=== PATIENT | male | born 1955 | race Hispanic/Latino ===

== ENCOUNTER → 2019-04-08 | Outpatient (CLI) | payer MEDICARE ==
[2019-04-08 14:39] VITALS: BP 113/67
== END | disposition home or self-care (01) ==
LOC: WHH 10:00
PROVIDERS: ATTEND Surgery
DX: E11.622 Type 2 diabetes mellitus with other skin ulcer (principal); L97.311 Non-pressure chronic ulcer of right ankle limited to breakdown of skin; I70.233 Atherosclerosis of native arteries of right leg with ulceration of ankle; I69.351 Hemiplegia and hemiparesis following cerebral infarction affecting right dominant side; E11.42 Type 2 diabetes mellitus with diabetic polyneuropathy; E11.51 Type 2 diabetes mellitus with diabetic peripheral angiopathy without gangrene; E11.39 Type 2 diabetes mellitus with other diabetic ophthalmic complication; H40.9 Unspecified glaucoma; I11.0 Hypertensive heart disease with heart failure; I50.9 Heart failure, unspecified; I87.2 Venous insufficiency (chronic) (peripheral); I89.0 Lymphedema, not elsewhere classified; E78.5 Hyperlipidemia, unspecified; K21.9 Gastro-esophageal reflux disease without esophagitis; G20 Parkinson's disease; M15.9 Polyosteoarthritis, unspecified; F32.9 Major depressive disorder, single episode, unspecified; Z87.891 Personal history of nicotine dependence
CPT/HCPCS: A4450; A6021; A6213; A6452; G0463

== ENCOUNTER → 2019-04-15 | Outpatient (CLI) | payer MEDICARE ==
[2019-04-15 11:15] VITALS: BP 141/94
== END | disposition home or self-care (01) ==
LOC: WHH 10:00
PROVIDERS: ATTEND Surgery
DX: E11.622 Type 2 diabetes mellitus with other skin ulcer (principal); L97.311 Non-pressure chronic ulcer of right ankle limited to breakdown of skin; I70.233 Atherosclerosis of native arteries of right leg with ulceration of ankle; I69.351 Hemiplegia and hemiparesis following cerebral infarction affecting right dominant side; E11.42 Type 2 diabetes mellitus with diabetic polyneuropathy; E11.51 Type 2 diabetes mellitus with diabetic peripheral angiopathy without gangrene; E11.39 Type 2 diabetes mellitus with other diabetic ophthalmic complication; H40.9 Unspecified glaucoma; I11.0 Hypertensive heart disease with heart failure; I50.9 Heart failure, unspecified; I87.2 Venous insufficiency (chronic) (peripheral); I89.0 Lymphedema, not elsewhere classified; E78.5 Hyperlipidemia, unspecified; K21.9 Gastro-esophageal reflux disease without esophagitis; G20 Parkinson's disease; M15.9 Polyosteoarthritis, unspecified; F32.9 Major depressive disorder, single episode, unspecified; Z87.891 Personal history of nicotine dependence
CPT/HCPCS: A6022; A6213; A6452; G0463

== ENCOUNTER → 2019-04-22 | Outpatient (CLI) | payer MEDICARE ==
[2019-04-22 12:47] VITALS: BP 142/78
== END | disposition home or self-care (01) ==
LOC: WHH 10:00
PROVIDERS: ATTEND Family Medicine
DX: E11.622 Type 2 diabetes mellitus with other skin ulcer (principal); L97.311 Non-pressure chronic ulcer of right ankle limited to breakdown of skin; I70.233 Atherosclerosis of native arteries of right leg with ulceration of ankle; E11.51 Type 2 diabetes mellitus with diabetic peripheral angiopathy without gangrene; E11.42 Type 2 diabetes mellitus with diabetic polyneuropathy; I69.351 Hemiplegia and hemiparesis following cerebral infarction affecting right dominant side; E11.39 Type 2 diabetes mellitus with other diabetic ophthalmic complication; H40.9 Unspecified glaucoma; I11.0 Hypertensive heart disease with heart failure; I50.9 Heart failure, unspecified; I87.2 Venous insufficiency (chronic) (peripheral); I89.0 Lymphedema, not elsewhere classified; E78.5 Hyperlipidemia, unspecified; K21.9 Gastro-esophageal reflux disease without esophagitis; G20 Parkinson's disease; M15.9 Polyosteoarthritis, unspecified; F32.9 Major depressive disorder, single episode, unspecified; Z87.891 Personal history of nicotine dependence
CPT/HCPCS: A6022; A6213; G0463

== ENCOUNTER → 2019-04-28 | Outpatient (CLI) | payer MEDICARE ==
[2019-04-28 13:07] VITALS: BP 128/83
== END | disposition home or self-care (01) ==
LOC: WHH 10:00
PROVIDERS: ATTEND Surgery
DX: E11.622 Type 2 diabetes mellitus with other skin ulcer (principal); L97.311 Non-pressure chronic ulcer of right ankle limited to breakdown of skin; I70.233 Atherosclerosis of native arteries of right leg with ulceration of ankle; E11.51 Type 2 diabetes mellitus with diabetic peripheral angiopathy without gangrene; E11.42 Type 2 diabetes mellitus with diabetic polyneuropathy; I69.351 Hemiplegia and hemiparesis following cerebral infarction affecting right dominant side; E11.39 Type 2 diabetes mellitus with other diabetic ophthalmic complication; H40.9 Unspecified glaucoma; I11.0 Hypertensive heart disease with heart failure; I50.9 Heart failure, unspecified; I87.2 Venous insufficiency (chronic) (peripheral); I89.0 Lymphedema, not elsewhere classified; K21.9 Gastro-esophageal reflux disease without esophagitis; E78.5 Hyperlipidemia, unspecified; G20 Parkinson's disease; M15.9 Polyosteoarthritis, unspecified; F32.9 Major depressive disorder, single episode, unspecified; Z87.891 Personal history of nicotine dependence
CPT/HCPCS: A6022; A6213; G0463

== ENCOUNTER → 2019-05-05 | Outpatient (CLI) | payer MEDICARE ==
[~2019-05-05] MED LIST: LIDOCAINE/PRILOCAINE CREAM 5GM TUBE TP ONE
[2019-05-05 13:40] VITALS: BP 136/72
== END | disposition home or self-care (01) ==
LOC: WHH 10:00
PROVIDERS: ATTEND Family Medicine
DX: E11.622 Type 2 diabetes mellitus with other skin ulcer (principal); L97.311 Non-pressure chronic ulcer of right ankle limited to breakdown of skin; I70.233 Atherosclerosis of native arteries of right leg with ulceration of ankle; E11.51 Type 2 diabetes mellitus with diabetic peripheral angiopathy without gangrene; E11.42 Type 2 diabetes mellitus with diabetic polyneuropathy; I69.351 Hemiplegia and hemiparesis following cerebral infarction affecting right dominant side; E11.39 Type 2 diabetes mellitus with other diabetic ophthalmic complication; H40.9 Unspecified glaucoma; I11.0 Hypertensive heart disease with heart failure; I50.9 Heart failure, unspecified; I87.2 Venous insufficiency (chronic) (peripheral); I89.0 Lymphedema, not elsewhere classified; K21.9 Gastro-esophageal reflux disease without esophagitis; E78.5 Hyperlipidemia, unspecified; G20 Parkinson's disease; M15.9 Polyosteoarthritis, unspecified; F32.9 Major depressive disorder, single episode, unspecified; F03.90 Unspecified dementia, unspecified severity, without behavioral disturbance, psychotic disturbance, mood disturbance, and anxiety; Z87.891 Personal history of nicotine dependence
CPT/HCPCS: 11042; A6022; A6213; J3490

== ENCOUNTER → 2019-05-19 | Outpatient (CLI) | payer MEDICARE ==
[2019-05-19 12:14] VITALS: BP 139/76
== END | disposition home or self-care (01) ==
LOC: WHH 10:30
PROVIDERS: ATTEND Family Medicine
DX: E11.622 Type 2 diabetes mellitus with other skin ulcer (principal); L97.311 Non-pressure chronic ulcer of right ankle limited to breakdown of skin; E11.51 Type 2 diabetes mellitus with diabetic peripheral angiopathy without gangrene; E11.42 Type 2 diabetes mellitus with diabetic polyneuropathy; I69.351 Hemiplegia and hemiparesis following cerebral infarction affecting right dominant side; E11.39 Type 2 diabetes mellitus with other diabetic ophthalmic complication; H40.9 Unspecified glaucoma; I11.0 Hypertensive heart disease with heart failure; I50.9 Heart failure, unspecified; I87.2 Venous insufficiency (chronic) (peripheral); I89.0 Lymphedema, not elsewhere classified; K21.9 Gastro-esophageal reflux disease without esophagitis; E78.5 Hyperlipidemia, unspecified; G20 Parkinson's disease; M15.9 Polyosteoarthritis, unspecified; F32.9 Major depressive disorder, single episode, unspecified; F03.90 Unspecified dementia, unspecified severity, without behavioral disturbance, psychotic disturbance, mood disturbance, and anxiety; Z87.891 Personal history of nicotine dependence; Z99.3 Dependence on wheelchair
CPT/HCPCS: G0463

== ENCOUNTER → 2019-05-26 | Outpatient (CLI) | payer MEDICARE ==
[2019-05-26 12:14] VITALS: BP 124/81
== END | disposition home or self-care (01) ==
LOC: WHH 10:10
PROVIDERS: ATTEND Surgery
DX: E11.622 Type 2 diabetes mellitus with other skin ulcer (principal); L97.311 Non-pressure chronic ulcer of right ankle limited to breakdown of skin; I70.233 Atherosclerosis of native arteries of right leg with ulceration of ankle; E11.51 Type 2 diabetes mellitus with diabetic peripheral angiopathy without gangrene; E11.42 Type 2 diabetes mellitus with diabetic polyneuropathy; I69.351 Hemiplegia and hemiparesis following cerebral infarction affecting right dominant side; E11.39 Type 2 diabetes mellitus with other diabetic ophthalmic complication; H40.9 Unspecified glaucoma; I11.0 Hypertensive heart disease with heart failure; I50.9 Heart failure, unspecified; I87.2 Venous insufficiency (chronic) (peripheral); I89.0 Lymphedema, not elsewhere classified; K21.9 Gastro-esophageal reflux disease without esophagitis; E78.5 Hyperlipidemia, unspecified; G20 Parkinson's disease; M15.9 Polyosteoarthritis, unspecified; F32.9 Major depressive disorder, single episode, unspecified; F03.90 Unspecified dementia, unspecified severity, without behavioral disturbance, psychotic disturbance, mood disturbance, and anxiety; Z87.891 Personal history of nicotine dependence; Z99.3 Dependence on wheelchair
CPT/HCPCS: A6209; A6213; G0463

== ENCOUNTER → 2019-06-02 | Outpatient (CLI) | payer MEDICARE ==
[2019-06-02 13:37] VITALS: BP 132/72
== END | disposition home or self-care (01) ==
LOC: WHH 10:15
PROVIDERS: ATTEND Surgery
DX: E11.622 Type 2 diabetes mellitus with other skin ulcer (principal); L97.311 Non-pressure chronic ulcer of right ankle limited to breakdown of skin; I70.233 Atherosclerosis of native arteries of right leg with ulceration of ankle; E11.51 Type 2 diabetes mellitus with diabetic peripheral angiopathy without gangrene; E11.42 Type 2 diabetes mellitus with diabetic polyneuropathy; I69.351 Hemiplegia and hemiparesis following cerebral infarction affecting right dominant side; E11.39 Type 2 diabetes mellitus with other diabetic ophthalmic complication; H40.9 Unspecified glaucoma; I11.0 Hypertensive heart disease with heart failure; I50.9 Heart failure, unspecified; I87.2 Venous insufficiency (chronic) (peripheral); I89.0 Lymphedema, not elsewhere classified; K21.9 Gastro-esophageal reflux disease without esophagitis; E78.5 Hyperlipidemia, unspecified; G20 Parkinson's disease; M15.9 Polyosteoarthritis, unspecified; F32.9 Major depressive disorder, single episode, unspecified; F03.90 Unspecified dementia, unspecified severity, without behavioral disturbance, psychotic disturbance, mood disturbance, and anxiety; Z87.891 Personal history of nicotine dependence; Z99.3 Dependence on wheelchair
CPT/HCPCS: A6209; A6213; A6452; G0463

== ENCOUNTER → 2019-06-09 | Outpatient (CLI) | payer MEDICARE ==
[2019-06-09 15:09] VITALS: BP 124/72
== END | disposition home or self-care (01) ==
LOC: WHH 10:00
PROVIDERS: ATTEND Family Medicine
DX: E11.622 Type 2 diabetes mellitus with other skin ulcer (principal); L97.311 Non-pressure chronic ulcer of right ankle limited to breakdown of skin; I70.233 Atherosclerosis of native arteries of right leg with ulceration of ankle; E11.621 Type 2 diabetes mellitus with foot ulcer; L97.501 Non-pressure chronic ulcer of other part of unspecified foot limited to breakdown of skin; E11.51 Type 2 diabetes mellitus with diabetic peripheral angiopathy without gangrene; E11.42 Type 2 diabetes mellitus with diabetic polyneuropathy; I69.351 Hemiplegia and hemiparesis following cerebral infarction affecting right dominant side; E11.39 Type 2 diabetes mellitus with other diabetic ophthalmic complication; H40.9 Unspecified glaucoma; I11.0 Hypertensive heart disease with heart failure; I50.9 Heart failure, unspecified; I87.2 Venous insufficiency (chronic) (peripheral); I89.0 Lymphedema, not elsewhere classified; K21.9 Gastro-esophageal reflux disease without esophagitis; E78.5 Hyperlipidemia, unspecified; G20 Parkinson's disease; M15.9 Polyosteoarthritis, unspecified; F32.9 Major depressive disorder, single episode, unspecified; F03.90 Unspecified dementia, unspecified severity, without behavioral disturbance, psychotic disturbance, mood disturbance, and anxiety; Z87.891 Personal history of nicotine dependence; Z99.3 Dependence on wheelchair
CPT/HCPCS: A6022; A6209; G0463

== ENCOUNTER → 2019-06-16 | Outpatient (CLI) | payer MEDICARE ==
[2019-06-16 12:40] VITALS: BP 123/74
== END | disposition home or self-care (01) ==
LOC: WHH 10:00
PROVIDERS: ATTEND Family Medicine
DX: E11.622 Type 2 diabetes mellitus with other skin ulcer (principal); L97.312 Non-pressure chronic ulcer of right ankle with fat layer exposed; I70.233 Atherosclerosis of native arteries of right leg with ulceration of ankle; E11.51 Type 2 diabetes mellitus with diabetic peripheral angiopathy without gangrene; E11.42 Type 2 diabetes mellitus with diabetic polyneuropathy; I69.351 Hemiplegia and hemiparesis following cerebral infarction affecting right dominant side; E11.39 Type 2 diabetes mellitus with other diabetic ophthalmic complication; H40.9 Unspecified glaucoma; I11.0 Hypertensive heart disease with heart failure; I50.9 Heart failure, unspecified; I87.2 Venous insufficiency (chronic) (peripheral); I89.0 Lymphedema, not elsewhere classified; K21.9 Gastro-esophageal reflux disease without esophagitis; E78.5 Hyperlipidemia, unspecified; G20 Parkinson's disease; M15.9 Polyosteoarthritis, unspecified; F32.9 Major depressive disorder, single episode, unspecified; F03.90 Unspecified dementia, unspecified severity, without behavioral disturbance, psychotic disturbance, mood disturbance, and anxiety; Z87.891 Personal history of nicotine dependence; Z99.3 Dependence on wheelchair
CPT/HCPCS: 11042; A6022; A6209; A6452

== ENCOUNTER → 2019-07-07 | Outpatient (CLI) | payer MEDICARE ==
[2019-07-07 11:43] VITALS: BP 137/81
== END | disposition home or self-care (01) ==
LOC: WHH 09:30
PROVIDERS: ATTEND Family Medicine
DX: E11.622 Type 2 diabetes mellitus with other skin ulcer (principal); I70.233 Atherosclerosis of native arteries of right leg with ulceration of ankle; L97.312 Non-pressure chronic ulcer of right ankle with fat layer exposed; E11.621 Type 2 diabetes mellitus with foot ulcer; L97.511 Non-pressure chronic ulcer of other part of right foot limited to breakdown of skin; E11.42 Type 2 diabetes mellitus with diabetic polyneuropathy; E11.39 Type 2 diabetes mellitus with other diabetic ophthalmic complication; H42 Glaucoma in diseases classified elsewhere; I11.0 Hypertensive heart disease with heart failure; I50.9 Heart failure, unspecified; I89.0 Lymphedema, not elsewhere classified; I87.2 Venous insufficiency (chronic) (peripheral); E78.5 Hyperlipidemia, unspecified; K21.9 Gastro-esophageal reflux disease without esophagitis; M15.9 Polyosteoarthritis, unspecified; G20 Parkinson's disease; G81.91 Hemiplegia, unspecified affecting right dominant side; F03.90 Unspecified dementia, unspecified severity, without behavioral disturbance, psychotic disturbance, mood disturbance, and anxiety; F32.9 Major depressive disorder, single episode, unspecified; Z99.3 Dependence on wheelchair; Z87.891 Personal history of nicotine dependence
CPT/HCPCS: 11042; A6021

== ENCOUNTER → 2019-07-14 | Outpatient (CLI) | payer MEDICARE ==
[2019-07-14 12:26] VITALS: BP 127/71
== END | disposition home or self-care (01) ==
LOC: WHH 09:00
PROVIDERS: ATTEND Family Medicine
DX: E11.622 Type 2 diabetes mellitus with other skin ulcer (principal); I70.233 Atherosclerosis of native arteries of right leg with ulceration of ankle; L97.311 Non-pressure chronic ulcer of right ankle limited to breakdown of skin; E11.39 Type 2 diabetes mellitus with other diabetic ophthalmic complication; H42 Glaucoma in diseases classified elsewhere; E11.51 Type 2 diabetes mellitus with diabetic peripheral angiopathy without gangrene; E11.42 Type 2 diabetes mellitus with diabetic polyneuropathy; I11.0 Hypertensive heart disease with heart failure; I50.9 Heart failure, unspecified; I87.2 Venous insufficiency (chronic) (peripheral); I89.0 Lymphedema, not elsewhere classified; G81.91 Hemiplegia, unspecified affecting right dominant side; G20 Parkinson's disease; M15.9 Polyosteoarthritis, unspecified; F03.90 Unspecified dementia, unspecified severity, without behavioral disturbance, psychotic disturbance, mood disturbance, and anxiety; K21.9 Gastro-esophageal reflux disease without esophagitis; Z99.3 Dependence on wheelchair; Z87.891 Personal history of nicotine dependence
CPT/HCPCS: 15271; A6207; Q4133

== ENCOUNTER → 2019-07-21 | Outpatient (CLI) | payer MEDICARE ==
[2019-07-21 12:27] VITALS: BP 122/79
== END | disposition home or self-care (01) ==
LOC: WHH 09:30
PROVIDERS: ATTEND Family Medicine
DX: E11.622 Type 2 diabetes mellitus with other skin ulcer (principal); I70.233 Atherosclerosis of native arteries of right leg with ulceration of ankle; L97.311 Non-pressure chronic ulcer of right ankle limited to breakdown of skin; E11.39 Type 2 diabetes mellitus with other diabetic ophthalmic complication; H42 Glaucoma in diseases classified elsewhere; E11.51 Type 2 diabetes mellitus with diabetic peripheral angiopathy without gangrene; E11.42 Type 2 diabetes mellitus with diabetic polyneuropathy; I11.0 Hypertensive heart disease with heart failure; I50.9 Heart failure, unspecified; I87.2 Venous insufficiency (chronic) (peripheral); I89.0 Lymphedema, not elsewhere classified; I69.851 Hemiplegia and hemiparesis following other cerebrovascular disease affecting right dominant side; K21.9 Gastro-esophageal reflux disease without esophagitis; G20 Parkinson's disease; M15.9 Polyosteoarthritis, unspecified; F03.90 Unspecified dementia, unspecified severity, without behavioral disturbance, psychotic disturbance, mood disturbance, and anxiety; Z99.3 Dependence on wheelchair; Z87.891 Personal history of nicotine dependence
CPT/HCPCS: 15271; A6207; Q4133

== ENCOUNTER → 2019-07-28 | Outpatient (CLI) | payer MEDICARE ==
[2019-07-28 11:38] VITALS: BP 137/71
== END | disposition home or self-care (01) ==
LOC: WHH 09:15
PROVIDERS: ATTEND Family Medicine
DX: E11.622 Type 2 diabetes mellitus with other skin ulcer (principal); I70.233 Atherosclerosis of native arteries of right leg with ulceration of ankle; L97.311 Non-pressure chronic ulcer of right ankle limited to breakdown of skin; E11.39 Type 2 diabetes mellitus with other diabetic ophthalmic complication; H42 Glaucoma in diseases classified elsewhere; E11.51 Type 2 diabetes mellitus with diabetic peripheral angiopathy without gangrene; E11.42 Type 2 diabetes mellitus with diabetic polyneuropathy; I11.0 Hypertensive heart disease with heart failure; I50.9 Heart failure, unspecified; I69.851 Hemiplegia and hemiparesis following other cerebrovascular disease affecting right dominant side; I87.2 Venous insufficiency (chronic) (peripheral); I89.0 Lymphedema, not elsewhere classified; K21.9 Gastro-esophageal reflux disease without esophagitis; G20 Parkinson's disease; M15.9 Polyosteoarthritis, unspecified; F03.90 Unspecified dementia, unspecified severity, without behavioral disturbance, psychotic disturbance, mood disturbance, and anxiety; Z99.3 Dependence on wheelchair; Z87.891 Personal history of nicotine dependence
CPT/HCPCS: A6021; A6207; G0463

== ENCOUNTER → 2019-08-04 | Outpatient (CLI) | payer MEDICARE ==
[2019-08-04 12:51] VITALS: BP 164/93
== END | disposition home or self-care (01) ==
LOC: WHH 08:30
PROVIDERS: ATTEND Family Medicine
DX: E11.622 Type 2 diabetes mellitus with other skin ulcer (principal); I70.233 Atherosclerosis of native arteries of right leg with ulceration of ankle; L97.318 Non-pressure chronic ulcer of right ankle with other specified severity; E11.51 Type 2 diabetes mellitus with diabetic peripheral angiopathy without gangrene; E11.39 Type 2 diabetes mellitus with other diabetic ophthalmic complication; H42 Glaucoma in diseases classified elsewhere; E11.42 Type 2 diabetes mellitus with diabetic polyneuropathy; I11.0 Hypertensive heart disease with heart failure; I50.9 Heart failure, unspecified; I69.851 Hemiplegia and hemiparesis following other cerebrovascular disease affecting right dominant side; I87.2 Venous insufficiency (chronic) (peripheral); I89.0 Lymphedema, not elsewhere classified; K21.9 Gastro-esophageal reflux disease without esophagitis; G20 Parkinson's disease; M15.9 Polyosteoarthritis, unspecified; F03.90 Unspecified dementia, unspecified severity, without behavioral disturbance, psychotic disturbance, mood disturbance, and anxiety; Z99.3 Dependence on wheelchair; Z87.891 Personal history of nicotine dependence
CPT/HCPCS: A6213; G0463

== ENCOUNTER → 2019-09-01 | Outpatient (CLI) | payer MEDICARE ==
[2019-09-01 11:06] VITALS: BP 122/71
== END | disposition home or self-care (01) ==
LOC: WHH 09:00
PROVIDERS: ATTEND Family Medicine
DX: E11.622 Type 2 diabetes mellitus with other skin ulcer (principal); I70.233 Atherosclerosis of native arteries of right leg with ulceration of ankle; L97.318 Non-pressure chronic ulcer of right ankle with other specified severity; E11.51 Type 2 diabetes mellitus with diabetic peripheral angiopathy without gangrene; E11.39 Type 2 diabetes mellitus with other diabetic ophthalmic complication; H42 Glaucoma in diseases classified elsewhere; E11.42 Type 2 diabetes mellitus with diabetic polyneuropathy; I11.0 Hypertensive heart disease with heart failure; I50.9 Heart failure, unspecified; I69.851 Hemiplegia and hemiparesis following other cerebrovascular disease affecting right dominant side; I87.2 Venous insufficiency (chronic) (peripheral); I89.0 Lymphedema, not elsewhere classified; K21.9 Gastro-esophageal reflux disease without esophagitis; G20 Parkinson's disease; F03.90 Unspecified dementia, unspecified severity, without behavioral disturbance, psychotic disturbance, mood disturbance, and anxiety; Z99.3 Dependence on wheelchair; Z87.891 Personal history of nicotine dependence
CPT/HCPCS: 15271; A6207; Q4133

== ENCOUNTER → 2019-09-08 | Outpatient (CLI) | payer MEDICARE ==
[2019-09-08 10:39] VITALS: BP 129/71
== END | disposition home or self-care (01) ==
LOC: WHH 08:45
PROVIDERS: ATTEND Family Medicine
DX: E11.622 Type 2 diabetes mellitus with other skin ulcer (principal); I70.233 Atherosclerosis of native arteries of right leg with ulceration of ankle; L97.318 Non-pressure chronic ulcer of right ankle with other specified severity; E11.51 Type 2 diabetes mellitus with diabetic peripheral angiopathy without gangrene; E11.39 Type 2 diabetes mellitus with other diabetic ophthalmic complication; H42 Glaucoma in diseases classified elsewhere; E11.42 Type 2 diabetes mellitus with diabetic polyneuropathy; I11.0 Hypertensive heart disease with heart failure; I50.9 Heart failure, unspecified; I69.851 Hemiplegia and hemiparesis following other cerebrovascular disease affecting right dominant side; I87.2 Venous insufficiency (chronic) (peripheral); I89.0 Lymphedema, not elsewhere classified; K21.9 Gastro-esophageal reflux disease without esophagitis; G20 Parkinson's disease; F03.90 Unspecified dementia, unspecified severity, without behavioral disturbance, psychotic disturbance, mood disturbance, and anxiety; Z99.3 Dependence on wheelchair; Z87.891 Personal history of nicotine dependence
CPT/HCPCS: G0463

== ENCOUNTER → 2019-09-15 | Outpatient (CLI) | payer MEDICARE ==
[2019-09-15 09:25] VITALS: BP 120/61
== END | disposition home or self-care (01) ==
LOC: WHH 08:40
PROVIDERS: ATTEND Family Medicine
DX: E11.622 Type 2 diabetes mellitus with other skin ulcer (principal); I70.233 Atherosclerosis of native arteries of right leg with ulceration of ankle; L97.318 Non-pressure chronic ulcer of right ankle with other specified severity; E11.51 Type 2 diabetes mellitus with diabetic peripheral angiopathy without gangrene; E11.39 Type 2 diabetes mellitus with other diabetic ophthalmic complication; H42 Glaucoma in diseases classified elsewhere; E11.42 Type 2 diabetes mellitus with diabetic polyneuropathy; I11.0 Hypertensive heart disease with heart failure; I50.9 Heart failure, unspecified; I69.851 Hemiplegia and hemiparesis following other cerebrovascular disease affecting right dominant side; I87.2 Venous insufficiency (chronic) (peripheral); I89.0 Lymphedema, not elsewhere classified; K21.9 Gastro-esophageal reflux disease without esophagitis; G20 Parkinson's disease; F03.90 Unspecified dementia, unspecified severity, without behavioral disturbance, psychotic disturbance, mood disturbance, and anxiety; Z99.3 Dependence on wheelchair; Z87.891 Personal history of nicotine dependence
CPT/HCPCS: G0463

== ENCOUNTER 2019-10-06 09:15 | Outpatient (CLI) | payer MEDICARE ==
[2019-10-06 12:04] VITALS: BP 94/38
== END 2019-10-06 17:00 | disposition home or self-care (01) ==
LOC: WHH 09:15
PROVIDERS: ATTEND Family Medicine
DX: E11.622 Type 2 diabetes mellitus with other skin ulcer (principal); I70.233 Atherosclerosis of native arteries of right leg with ulceration of ankle; L97.318 Non-pressure chronic ulcer of right ankle with other specified severity; E11.51 Type 2 diabetes mellitus with diabetic peripheral angiopathy without gangrene; E11.39 Type 2 diabetes mellitus with other diabetic ophthalmic complication; H42 Glaucoma in diseases classified elsewhere; E11.42 Type 2 diabetes mellitus with diabetic polyneuropathy; I11.0 Hypertensive heart disease with heart failure; I50.9 Heart failure, unspecified; I69.851 Hemiplegia and hemiparesis following other cerebrovascular disease affecting right dominant side; I87.2 Venous insufficiency (chronic) (peripheral); I89.0 Lymphedema, not elsewhere classified; K21.9 Gastro-esophageal reflux disease without esophagitis; G20 Parkinson's disease; F03.90 Unspecified dementia, unspecified severity, without behavioral disturbance, psychotic disturbance, mood disturbance, and anxiety; Z99.3 Dependence on wheelchair; Z87.891 Personal history of nicotine dependence
CPT/HCPCS: G0463

== ENCOUNTER → 2019-11-07 | Outpatient (CLI) | payer MEDICARE ==
[2019-11-07 12:55] VITALS: BP 124/71
== END | disposition home or self-care (01) ==
LOC: WHH 10:29
PROVIDERS: ATTEND Family Medicine
DX: E11.622 Type 2 diabetes mellitus with other skin ulcer (principal); I70.233 Atherosclerosis of native arteries of right leg with ulceration of ankle; L97.312 Non-pressure chronic ulcer of right ankle with fat layer exposed; E11.51 Type 2 diabetes mellitus with diabetic peripheral angiopathy without gangrene; E11.39 Type 2 diabetes mellitus with other diabetic ophthalmic complication; H42 Glaucoma in diseases classified elsewhere; E11.42 Type 2 diabetes mellitus with diabetic polyneuropathy; I11.0 Hypertensive heart disease with heart failure; I50.9 Heart failure, unspecified; E78.5 Hyperlipidemia, unspecified; I25.10 Atherosclerotic heart disease of native coronary artery without angina pectoris; I87.2 Venous insufficiency (chronic) (peripheral); I89.0 Lymphedema, not elsewhere classified; K21.9 Gastro-esophageal reflux disease without esophagitis; G20 Parkinson's disease; F03.90 Unspecified dementia, unspecified severity, without behavioral disturbance, psychotic disturbance, mood disturbance, and anxiety; F32.9 Major depressive disorder, single episode, unspecified; Z99.3 Dependence on wheelchair; Z87.891 Personal history of nicotine dependence; Z86.73 Personal history of transient ischemic attack (TIA), and cerebral infarction without residual deficits; Z95.5 Presence of coronary angioplasty implant and graft
CPT/HCPCS: 11042; A4450; A6021; J3490

== ENCOUNTER → 2019-11-14 | Outpatient (CLI) | payer MEDICARE ==
[2019-11-14 10:48] VITALS: BP 119/66
== END | disposition home or self-care (01) ==
LOC: WHH 08:30
PROVIDERS: ATTEND Family Medicine
DX: E11.622 Type 2 diabetes mellitus with other skin ulcer (principal); I70.233 Atherosclerosis of native arteries of right leg with ulceration of ankle; L97.312 Non-pressure chronic ulcer of right ankle with fat layer exposed; E11.51 Type 2 diabetes mellitus with diabetic peripheral angiopathy without gangrene; E11.39 Type 2 diabetes mellitus with other diabetic ophthalmic complication; H42 Glaucoma in diseases classified elsewhere; E11.42 Type 2 diabetes mellitus with diabetic polyneuropathy; I11.0 Hypertensive heart disease with heart failure; I50.9 Heart failure, unspecified; E78.5 Hyperlipidemia, unspecified; I25.10 Atherosclerotic heart disease of native coronary artery without angina pectoris; I87.2 Venous insufficiency (chronic) (peripheral); I89.0 Lymphedema, not elsewhere classified; K21.9 Gastro-esophageal reflux disease without esophagitis; G20 Parkinson's disease; F03.90 Unspecified dementia, unspecified severity, without behavioral disturbance, psychotic disturbance, mood disturbance, and anxiety; F32.9 Major depressive disorder, single episode, unspecified; Z99.3 Dependence on wheelchair; Z87.891 Personal history of nicotine dependence; Z86.73 Personal history of transient ischemic attack (TIA), and cerebral infarction without residual deficits; Z95.5 Presence of coronary angioplasty implant and graft
CPT/HCPCS: 11042; A6021

== ENCOUNTER → 2019-11-21 | Outpatient (CLI) | payer MEDICARE ==
[2019-11-21 13:42] VITALS: BP 112/57
== END | disposition home or self-care (01) ==
LOC: WHH 08:45
PROVIDERS: ATTEND Family Medicine
DX: E11.622 Type 2 diabetes mellitus with other skin ulcer (principal); L89.510 Pressure ulcer of right ankle, unstageable; L97.312 Non-pressure chronic ulcer of right ankle with fat layer exposed; E11.51 Type 2 diabetes mellitus with diabetic peripheral angiopathy without gangrene; E11.43 Type 2 diabetes mellitus with diabetic autonomic (poly)neuropathy; E11.39 Type 2 diabetes mellitus with other diabetic ophthalmic complication; H42 Glaucoma in diseases classified elsewhere; I11.0 Hypertensive heart disease with heart failure; I50.9 Heart failure, unspecified; I25.10 Atherosclerotic heart disease of native coronary artery without angina pectoris; I87.2 Venous insufficiency (chronic) (peripheral); I89.0 Lymphedema, not elsewhere classified; G81.91 Hemiplegia, unspecified affecting right dominant side; G20 Parkinson's disease; E78.5 Hyperlipidemia, unspecified; F03.90 Unspecified dementia, unspecified severity, without behavioral disturbance, psychotic disturbance, mood disturbance, and anxiety; F32.9 Major depressive disorder, single episode, unspecified; Z87.891 Personal history of nicotine dependence; Z95.1 Presence of aortocoronary bypass graft; Z99.3 Dependence on wheelchair; Z86.73 Personal history of transient ischemic attack (TIA), and cerebral infarction without residual deficits
CPT/HCPCS: 11042; J3490

== ENCOUNTER 2019-11-28 10:39 | Observation (INO) | payer MEDICARE ==
[~2019-11-28] VITALS: Ht 172.7 cm; Wt 90.2 kg
[2019-11-28] MEDS ORDERED: ACETAMINOPHEN EXTRA STRENGTH 500 MG TABLET ONE (11:12)
[2019-11-28] MEDS ORDERED: SODIUM CHLORIDE 0.9% 1000ML 1,000 ML IV ONE ×3 (11:12→19:01)
[2019-11-28 11:24] LABS: BASOPHILS % (AUTO) 0.5 % (0.0-5.0); EOSINOPHILS % (AUTO) 0.3 % (0.0-8.0); LYMPHOCYTES % (AUTO) 11.3 % (21.0-51.0); MEAN CORPUSCULAR HEMOGLOBIN 28.6 pg (27.0-33.0); MEAN CORPUSCULAR HGB CONC 31.6 g/dL (32.0-36.0); MEAN CORPUSCULAR VOLUME 90.5 fL (79-99); MONOCYTES % (AUTO) 9.4 % (3.0-13.0); NEUTROPHILS % (AUTO) 77.5 % (40.0-77.0); PLATELET COUNT (AUTO) 155 K/uL (130-400); RED BLOOD CELL COUNT(AUTO) 4.75 MIL/uL (4.50-6.20); RED CELL DISTRIBUTION WIDTH 12.8 % (11.0-15.5); WHITE BLOOD COUNT (AUTO) 15.5 K/uL (4.8-10.8)
[2019-11-28 11:35] LABS: INR 1.07 (0.85-1.15); PARTIAL THROMBOPLASTIN TIME 27.5 SEC (26.3-35.5); PROTHROMBIN TIME 11.2 SEC (9.6-11.6)
[2019-11-28 11:42] LABS: CARBON DIOXIDE 29 mmol/L (21-32); CHLORIDE 106 mmol/L (101-111); CREATININE 1.2 mg/dL (0.5-1.5); GLOMERULAR FILTR. RATE CALC 64 mL/min (>60); GLUCOSE,RANDOM 371 mg/dL (70-105); POTASSIUM 3.9 mmol/L (3.5-5.1); SODIUM SERUM 144 mmol/L (136-145); UREA NITROGEN, BLOOD 20 mg/dL (7-18)
[2019-11-28] MEDS ORDERED: ZOSYN 3.375GM+NS 50ML 50 ML IV ONE ×3 (11:44→20:06)
[2019-11-28] MEDS ORDERED: SODIUM CHLORIDE 0.9% 50 ML IV ONE (11:52)
[2019-11-28 11:53] LABS: ALANINE AMINOTRANSFERASE 21 U/L (12-78); ALBUMIN 2.7 g/dL (3.5-5.0); ASPARTATE AMINOTRANSFERASE 10 U/L (10-37); BILIRUBIN,TOTAL 0.9 mg/dL (0.2-1.0); CREATINE KINASE, TOTAL 90 U/L (21-232); MYOGLOBIN 160 ng/mL (10-92); TOTAL PROTEIN, SERUM 7.6 g/dL (6.0-8.3); TROPONIN I < 0.04 ng/mL (0.00-0.06)
[2019-11-28] MEDS ORDERED: INSULIN HUMULIN R 100 UNIT/ML 3ML ONE (13:15)
[2019-11-28 13:19] LABS: BILIRUBIN,URINE Negative (NEGATIVE); COLOR,URINE Dark Yellow (YELLOW); GLUCOSE, URINE (UA) >=1000 mg/dL (NEGATIVE); KETONES,URINE 15 mg/dL (NEGATIVE); LEUKOCYTE ESTERASE ,URINE Negative (NEGATIVE); NITRATE,URINE Negative (NEGATIVE); OCCULT BLOOD,URINE Trace (NEGATIVE); PROTEIN,URINE POS 2+ mg/dL (NEGATIVE)
[2019-11-28 13:22] LABS: APPEARANCE,URINE SLIGHTLY CLOUDY (CLEAR)
[2019-11-28 13:37] LABS: AMORPHOUS SEDIMENT,UR Moderate /LPF (None Seen); BACTERIA,URINE Few /HPF (None Seen); RBC,URINE 0-1 /HPF (0-1); WBC,URINE 0-1 /HPF (0-1)
[2019-11-28] MEDS ORDERED: VANCOMYCIN 1GM+NS 250ML 250 ML IV ONE (14:40)
--- NOTE | 2019-11-28 16:59 | NUR ---
Initial Assessment SW spoke to patient's daughter, Delores Keith. Patient is a resident of [facility]. PCP is Dr. Cavazos. ANYA/Choice was signed by daughter and placed in chart. SW contacted Marichuy Roldan, Admissions Liaison for [facility] and confirmed that patient was able to return. [facility] is [facility]. Addendum: 11/28/19 at 1702 by CHARLOTTE SANDERS SS Amended: Links added.
--- NOTE | 2019-11-28 17:17 | NUR ---
[id number] patient's daughter signed IM Letter. I faxed IM letter to [phone] and placed in chart
[2019-11-28] MEDS ORDERED: VANCOMYCIN PROTOCOL PER PHARMACY IV SCH (18:15)
[2019-11-28] MEDS ORDERED: COMPOUND IV REFRIGERATED 1 EACH IVSOLN MISC PRN (18:15)
[2019-11-28] MEDS ORDERED: VANCOMYCIN 1.5 GM in SODIUM CHLORIDE 0.9% 250 ML IV ONE (18:30)
[2019-11-28] MEDS ORDERED: ACETAMINOPHEN 325 MG TAB PO PRN (19:00)
[2019-11-28] MEDS ORDERED: GLUCAGON 1MG KIT 1 MG ML IM PRN (19:00)
[2019-11-28] MEDS ORDERED: DEXTROSE 50%-WATER 50 ML DISP.SYRIN IV PRN (19:00)
[2019-11-28] MEDS: ZOSYN 3.375GM+NS 50ML 50 ML IV SCH (20:00)
--- NOTE | 2019-11-28 21:00 | NUR ---
Admission Assessment Received pt from ED per stretcher with daughter Delores Keith around, routine admission assessment done, plan of care discuss. Per daughter stated that pt has been spiking a fever on & off since Sunday reason Wound Healing Physician Dr. Miller advise pt to be admitted. Pt daughter also mention that pt was positive for MRSA to his wound was started by Dr. Soto, Doxycycline at [facility]. Per daughter stated that pt's wound is chronic, had healed x2 & recur again for the third time. Pt reported as bed & wheelchair bound, a resident of [facility]. Per daughter stated due to dementia, pt can recall remote memory but not recent events. Pt currently denies discomfort, Vanco & Zosyn initial doses given in Ed. Verifies re: Vaccinations, per daughter stated [facility] has the records for this. Phoned [facility] no answer, will try to call again later for vaccination record, medication profile.
[2019-11-28 21:09] VITALS: BP 155/89
[2019-11-28] MEDS: INSULIN R PO SS1 SQ SCH (21:44)
--- NOTE | 2019-11-29 02:30 | NUR ---
Re: Current medication profile/vaccination Phone Chuck Ambriz again at this time [phone] spoke with Starla, made aware that I need pt list of medication with current vaccination, stated she will fax it to me # [phone].
[2019-11-29] MEDS: ZOSYN 3.375GM+NS 50ML 50 ML IV SCH ×2 (03:45→12:08)
[2019-11-29 04:25] VITALS: BP 153/77
[2019-11-29] MEDS: VANCOMYCIN 1GM+NS 250ML 250 ML IV SCH ×2 (06:15→17:23)
[2019-11-29] MEDS: INSULIN R PO SS1 SQ SCH ×3 (06:33→17:24)
[2019-11-29 06:34] LABS: HEMATOCRIT 38.6 % (42-54); MEAN CORPUSCULAR HEMOGLOBIN 28.4 pg (27.0-33.0); MEAN CORPUSCULAR HGB CONC 30.6 g/dL (32.0-36.0); MEAN CORPUSCULAR VOLUME 92.8 fL (79-99); PLATELET COUNT (AUTO) 140 K/uL (130-400); RED BLOOD CELL COUNT(AUTO) 4.16 MIL/uL (4.50-6.20); RED CELL DISTRIBUTION WIDTH 12.8 % (11.0-15.5); WHITE BLOOD COUNT (AUTO) 12.1 K/uL (4.8-10.8)
[2019-11-29 06:54] LABS: ALBUMIN 2.1 g/dL (3.5-5.0); BILIRUBIN,TOTAL 0.5 mg/dL (0.2-1.0); POTASSIUM 3.6 mmol/L (3.5-5.1); TOTAL PROTEIN, SERUM 6.4 g/dL (6.0-8.3)
--- NOTE | 2019-11-29 07:00 | NUR ---
Phoned Chuck Ambriz again, & I was transferred to another extension, just kept ringing no answer, Leticia GUTIERREZ made aware of this multiple attempts.
[2019-11-29 07:30] VITALS: BP 161/77
[2019-11-29] MEDS ORDERED: ENOXAPARIN SODIUM 40 MG/0.4 ML SYRINGE SQ SCH (09:00)
[2019-11-29] MEDS ORDERED: MULT-1278 PO (11:43)
[2019-11-29] MEDS ORDERED: DOXY100T2 PO (11:43)
[2019-11-29] MEDS ORDERED: FLUC200T8 PO (11:43)
[2019-11-29] MEDS ORDERED: AMLO2.5T4 PO ×2 (11:43→12:01)
[2019-11-29] MEDS ORDERED: TRAM50TA4 PO (11:43)
[2019-11-29] MEDS ORDERED: CLOP75TA14 PO (11:43)
[2019-11-29] MEDS ORDERED: ZINC220C6 PO (11:43)
[2019-11-29] MEDS ORDERED: CARV3.12 PO ×2 (11:43→12:01)
[2019-11-29] MEDS ORDERED: AEC81 PO (11:43)
[2019-11-29] MEDS ORDERED: CITA-107 PO (11:43)
[2019-11-29] MEDS ORDERED: ACET-3194 PO (11:43)
[2019-11-29] MEDS ORDERED: METF-446 PO (11:43)
[2019-11-29] MEDS ORDERED: SENN1TAB72 PO (11:43)
[2019-11-29 12:00] VITALS: BP 170/92
[2019-11-29] MEDS ORDERED: TRAMADOL HCL 50 MG TABLET PO PRN (12:00)
[2019-11-29] MEDS ORDERED: ACETAMINOPHEN EXTENDED RELEASE 650 MG TABLET PO PRN (12:00)
[2019-11-29] MEDS ORDERED: CARVEDILOL 3.125 MG TABLET PO ONE (12:07)
[2019-11-29] MEDS ORDERED: AMLODIPINE BESYLATE 2.5 MG TAB PO ONE (12:07)
--- NOTE | 2019-11-29 12:30 | NUR ---
[facility] ACCEPTED cm spoke to Ruth with [facility]. 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 CM informed Ruth that orders are to continue same medication from SNF. States they can return today. CM updated nursing with above.
--- NOTE | 2019-11-29 13:27 | NUR ---
RD NOTIFICATION DX CELLULITIS TO RIGHT LEG. PO INTAKE 75-100% AND HAS GOOD APPETITE. NO COMPLAINS OF N/V/C/D. PT IS TOLERATING CURRENT DIET. NO DIFFICULTIES CHEWING OR SWALLOWING FOOD/ LIQUIDS AT THIS TIME. RIGHT ANKLE ULCER NOTED. LABS REVIEWED. MEDS REVIEWED. RD RECOMMENDS TO ADD KIT AND PROMOD BID TO DIET ORDER RECOMMEND VITAMIN C AND ZINC SULFATE FOR WOUND HEALING ENCOURAGE ADEQUATE PO AND FLUIDS DAILY Addendum: 11/29/19 at [address] Amended: Links added.
[2019-11-29] MEDS ORDERED: LATA7.5D OP (15:26)
[2019-11-29] MEDS ORDERED: NIZO215C TP (15:26)
[2019-11-29] MEDS ORDERED: IPRA3AMP24 IH (15:26)
[2019-11-29] MEDS ORDERED: INSLAN SQ (15:26)
[2019-11-29] MEDS ORDERED: IPRATROPIUM/ALBUTEROL SULFATE 3 ML SOLUTION IH PRN (15:30)
[2019-11-29 16:07] VITALS: BP 151/84
[2019-11-29] MEDS ORDERED: METFORMIN HCL 500 MG TABLET PO SCH (17:00)
--- NOTE | 2019-11-29 17:09 | NUR ---
call report to alice feldman. given report to myrna lobato. all questions are answered. 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
[2019-11-29] MEDS ORDERED: SENNOSIDES PO SCH (21:00)
[2019-11-29] MEDS ORDERED: DOXYCYCLINE HYCLATE 100 MG TABLET PO SCH (21:00)
[2019-11-29] MEDS ORDERED: CARVEDILOL 3.125 MG TABLET PO SCH (21:00)
[2019-11-29] MEDS ORDERED: DOCUSATE SODIUM PO SCH (21:00)
[2019-11-29] MEDS ORDERED: INSULIN GLARGINE 100 UNITS/ML 10 ML VIAL SQ SCH (21:00)
[2019-11-29] MEDS ORDERED: LATANOPROST 2.5 ML DROPS OP SCH (21:00)
[2019-11-30] MEDS ORDERED: ZINC SULFATE 220 CAPSULE PO SCH (09:00)
[2019-11-30] MEDS ORDERED: KETOCONAZOLE 15 GM CREAM.GM. TP SCH (09:00)
[2019-11-30] MEDS ORDERED: ASPIRIN 81 MG EC TAB PO SCH (09:00)
[2019-11-30] MEDS ORDERED: AMLODIPINE BESYLATE 2.5 MG TAB PO SCH (09:00)
[2019-11-30] MEDS ORDERED: FLUCONAZOLE 100 MG TAB PO SCH (09:00)
[2019-11-30] MEDS ORDERED: CLOPIDOGREL BISULFATE 75 MG TAB PO SCH (09:00)
[2019-11-30] MEDS ORDERED: CITALOPRAM 20 MG TABLET PO SCH (09:00)
[2019-11-30] MEDS ORDERED: FE FUMARATE/FA/MV, MIN COMB#15 1 TAB PO SCH (13:00)
== END 2019-11-29 18:30 ==
LOC: EDH 10:39 → OBSVTOIN 13:50 → EDHIP 13:50 → INTOOBSV 13:50 → 3DH 20:45
PROVIDERS: ADMIT Internal Medicine; ATTEND Internal Medicine
DX: E11.621 Type 2 diabetes mellitus with foot ulcer (principal); L97.519 Non-pressure chronic ulcer of other part of right foot with unspecified severity; L03.115 Cellulitis of right lower limb; E11.65 Type 2 diabetes mellitus with hyperglycemia; I10 Essential (primary) hypertension; E78.00 Pure hypercholesterolemia, unspecified; F03.90 Unspecified dementia, unspecified severity, without behavioral disturbance, psychotic disturbance, mood disturbance, and anxiety; I25.10 Atherosclerotic heart disease of native coronary artery without angina pectoris; E78.5 Hyperlipidemia, unspecified; K21.9 Gastro-esophageal reflux disease without esophagitis; F32.9 Major depressive disorder, single episode, unspecified; M19.90 Unspecified osteoarthritis, unspecified site; Z87.891 Personal history of nicotine dependence; Z86.73 Personal history of transient ischemic attack (TIA), and cerebral infarction without residual deficits
CPT/HCPCS: 36415 ×2; 71045; 73610; 80053 ×2; 81001; 82550; 82948 ×7; 83605 ×2; 83690; 83874; 84145; 84484; 85025; 85027; 85610; 85651; 85730; 86140; 87040 ×2; 87088; 87804 ×2; 93005; 94664; 96365; 96366 ×2; 96367; 96368; 96372 ×3; 99291; G0378 ×12; G0463; J1650; J1815 ×5; J2543 ×5; J3370 ×4; J7030 ×4

== ENCOUNTER → 2019-11-28 | Outpatient (CLI) | payer MEDICARE ==
[~2019-11-28] MED LIST changes: +ACET-3194 PO; +AEC81 PO; +AMLO2.5T4 PO; +CARV3.12 PO; +CITA-107 PO; +CLOP75TA14 PO; +DOXY100T2 PO; +FLUC200T8 PO; +INSLAN SQ; +IPRA3AMP24 IH; +LATA7.5D OP; -LIDOCAINE/PRILOCAINE CREAM 5GM TUBE TP ONE; +METF-446 PO; +MULT-1278 PO; +NIZO215C TP; +SENN1TAB72 PO; +TRAM50TA4 PO; +ZINC220C6 PO
[2019-11-28 12:44] VITALS: BP 131/80
== END | disposition home or self-care (01) ==
LOC: WHH 08:45
PROVIDERS: ATTEND Family Medicine
DX: E11.622 Type 2 diabetes mellitus with other skin ulcer (principal); L89.512 Pressure ulcer of right ankle, stage 2; L97.311 Non-pressure chronic ulcer of right ankle limited to breakdown of skin; E11.39 Type 2 diabetes mellitus with other diabetic ophthalmic complication; H42 Glaucoma in diseases classified elsewhere; E11.43 Type 2 diabetes mellitus with diabetic autonomic (poly)neuropathy; E11.51 Type 2 diabetes mellitus with diabetic peripheral angiopathy without gangrene; I25.10 Atherosclerotic heart disease of native coronary artery without angina pectoris; I11.0 Hypertensive heart disease with heart failure; I50.9 Heart failure, unspecified; I87.2 Venous insufficiency (chronic) (peripheral); I89.0 Lymphedema, not elsewhere classified; E78.5 Hyperlipidemia, unspecified; G81.91 Hemiplegia, unspecified affecting right dominant side; G20 Parkinson's disease; K21.9 Gastro-esophageal reflux disease without esophagitis; A49.02 Methicillin resistant Staphylococcus aureus infection, unspecified site; F32.9 Major depressive disorder, single episode, unspecified; F03.90 Unspecified dementia, unspecified severity, without behavioral disturbance, psychotic disturbance, mood disturbance, and anxiety; Z99.3 Dependence on wheelchair; Z95.1 Presence of aortocoronary bypass graft; Z87.891 Personal history of nicotine dependence; Z86.73 Personal history of transient ischemic attack (TIA), and cerebral infarction without residual deficits
CPT/HCPCS: 82948; G0463

== ENCOUNTER 2020-04-18 16:50 | Inpatient (IN) | payer MEDICARE ==
[~2020-04-18] VITALS: Ht 172.7 cm; Wt 91.6 kg
[2020-04-18] MEDS ORDERED: VANCOMYCIN 1GM+NS 250ML 500 ML IV ONE (21:13)
[2020-04-19] VITALS (7 sets, daily range): BP systolic 132–168; BP diastolic 64–87; PULSE 67–79; RESP 16–19; TEMP 96.6–98.7
[2020-04-19] MEDS: 1/2 NORMAL SALINE 1,000 ML IV SCH ×3 (01:00→19:58)
[2020-04-19] MEDS ORDERED: HYDROMORPHONE 1 MG/1 ML AMP IVP PRN (01:00)
[2020-04-19] MEDS: ZOSYN 3.375GM+NS 50ML 50 ML IV SCH ×3 (01:00→17:03)
[2020-04-19] MEDS ORDERED: ONDANSETRON HCL 4 MG/2 ML VIAL IVP PRN (01:00)
[2020-04-19] MEDS ORDERED: 1/2 NORMAL SALINE 1,000 ML IV ONE (01:01)
[2020-04-19] MEDS ORDERED: COMPOUND IV REFRIGERATED 1 EACH IVSOLN MISC PRN (06:00)
[2020-04-19] MEDS ORDERED: VANCOMYCIN PROTOCOL PER PHARMACY IV SCH (06:00)
[2020-04-19] MEDS: VANCOMYCIN 1.25 GM in SODIUM CHLORIDE 0.9% 250 ML IV SCH ×2 (08:21→19:59)
[2020-04-19] MEDS: METFORMIN HCL 500 MG TABLET PO SCH ×2 (08:52→17:03)
[2020-04-19] MEDS: CARVEDILOL 3.125 MG TABLET PO SCH ×2 (09:00→19:59)
[2020-04-19] MEDS: CLOPIDOGREL BISULFATE 75 MG TAB PO SCH (11:29)
[2020-04-19] MEDS: CITALOPRAM 20 MG TABLET PO SCH (11:31)
[2020-04-19] MEDS: AMLODIPINE BESYLATE 2.5 MG TAB PO SCH (11:31)
[2020-04-19] MEDS: INSULIN GLARGINE 100 UNITS/ML 10 ML VIAL SQ SCH (11:44)
--- NOTE | 2020-04-19 13:00 | NUR ---
JULIET WENT OT SPEAK TO PATIENT IN ROOM, ADVISED BY HIM TO CONTACT DTR ON FACE SHEET DARRELL, LEFT MESSAGE, GO CALL BACK, INFO FOLLOWS: PATIENT IS LT RESIDENT OF [facility], WAS PULLED FROM FACILITY BY FAMILY WHEN COVID OUTBREAK - PATIENT TESTED POSITIVE, WAS BEING CARE FOR AT HOME BY SON, BUT UNABLE TO GET HOME CARE BECAUSE OF HIS POSITIVE STATUS. RE TEST ON 03/17, NEGATIVE. FAMILY UNABLE TO FIND A FACLITY TO TAKE HIM. DTR HAS SPOKEN TO [facility], WANT TO TRY THERE FOR [facility] STATSU, ANYA RECD FOR [facility], WILL REACH OUT TO MD FOR ORDER AND ANAI FOR COVID TEST Addendum: 04/19/20 at 1453 by VICKI SIMON RN CM Amended: Links added.
--- NOTE | 2020-04-19 13:52 | NUR ---
DR. MAURO GONZALES CONSULT DESCENDING AORTA AND ASCENDING COLON NEOPLASTIC PROCESS
--- NOTE | 2020-04-19 13:57 | NUR ---
WRONG PT FOR CONSULT
--- NOTE | 2020-04-19 15:45 | NUR ---
MARTI REYES OF [facility]? NEED ORDER WILL WAIT FOR PLAN Addendum: 04/19/20 at 1545 by VICKI SIMON RN CM Amended: Links added.
[2020-04-19] MEDS: ATORVASTATIN CALCIUM 20 MG TABLET PO SCH (19:59)
[2020-04-20] MEDS: ZOSYN 3.375GM+NS 50ML 50 ML IV SCH ×3 (01:55→16:50)
[2020-04-20 03:45] VITALS: BP 149/74; PULSE 59; RESP 18; TEMP 98.6
[2020-04-20] MEDS: 1/2 NORMAL SALINE 1,000 ML IV SCH ×2 (07:51→16:50)
[2020-04-20] MEDS: METFORMIN HCL 500 MG TABLET PO SCH ×2 (07:51→16:50)
[2020-04-20 08:00] VITALS: BP 113/77; PULSE 68; RESP 16; TEMP 98.1
[2020-04-20] MEDS: AMLODIPINE BESYLATE 2.5 MG TAB PO SCH (08:01)
[2020-04-20] MEDS: VANCOMYCIN 1.25 GM in SODIUM CHLORIDE 0.9% 250 ML IV SCH ×2 (08:01→20:42)
[2020-04-20] MEDS: CITALOPRAM 20 MG TABLET PO SCH (08:01)
[2020-04-20] MEDS: CARVEDILOL 3.125 MG TABLET PO SCH ×2 (08:02→20:43)
[2020-04-20] MEDS: CLOPIDOGREL BISULFATE 75 MG TAB PO SCH (08:02)
[2020-04-20] MEDS: INSULIN GLARGINE 100 UNITS/ML 10 ML VIAL SQ SCH (08:17)
[2020-04-20 11:43] VITALS: BP 140/69; PULSE 64; RESP 18; TEMP 98.6
--- NOTE | 2020-04-20 12:04 | NUR ---
DR. PALMA PT HAVING JUNTIONAL RHYTHM PER DR. PALMA EKG ORDERED AND WILL FAX
--- NOTE | 2020-04-20 12:27 | NUR ---
EKG EKG DONE, CALLED TO , OFFICE TO SEE IF FAXED RECEIVED. NO ORDERS AT THIS TIME.
--- NOTE | 2020-04-20 14:12 | NUR ---
ADVISED PT STAFF OF [facility] FOR SNF VS LT PLACEMENT WILL AWAIT THEIR NOTES. SENDING REFERRAL TODAY TO [facility] FOR [facility]OUND CARE/PT ADVISED ANAI LOMBARDO AT [facility]. PENDING AL TEST FOR PLACMENT Addendum: 04/20/20 at 1755 by VICKI SIMON RN CM Amended: Links added.
[2020-04-20 16:00] VITALS: BP 136/66; PULSE 74; RESP 18; TEMP 97.8
[2020-04-20] MEDS: HONEY 1 APPL/ML TUBE TP SCH (16:50)
[2020-04-20] MEDS: ATORVASTATIN CALCIUM 20 MG TABLET PO SCH (20:42)
--- NOTE | 2020-04-20 21:17 | NUR ---
04/20/20 @ 1930: Braille Transcriber called answering service for Roldan Bolden NP informed of consult. 04/20/20 @ 8109: Dr. Humphries returned the call informed him of the patient's irregular rhythm, no new orders just to placed reading in patient's chart.
[2020-04-20 21:39] VITALS: BP 145/80; PULSE 67; RESP 19; TEMP 98.9
--- NOTE | 2020-04-20 22:38 | NUR ---
paged via answering service, answered back within a few minutes. Informed him of the fingerstick readings for the day over 200 at this time at 314. Orders received to start on Novolog SS #1 with coverage starting over 200. Patient made aware of new orders.
[2020-04-20] MEDS ORDERED: GLUCAGON 1MG KIT 1 MG ML IM PRN (22:45)
[2020-04-20] MEDS ORDERED: DEXTROSE 50%-WATER 50 ML DISP.SYRIN IV PRN (22:45)
[2020-04-20] MEDS: INSULIN LISPRO 100 UNIT/ML 3ML SQ SCH (22:50)
[2020-04-21 00:11] VITALS: BP 167/80; PULSE 65; RESP 19; TEMP 98.2
[2020-04-21] MEDS: ZOSYN 3.375GM+NS 50ML 50 ML IV SCH ×3 (01:15→18:24)
[2020-04-21] MEDS: 1/2 NORMAL SALINE 1,000 ML IV SCH ×3 (01:15→23:00)
[2020-04-21 04:26] VITALS: BP 138/74; PULSE 60; RESP 20; TEMP 98.2
[2020-04-21] MEDS: INSULIN LISPRO 100 UNIT/ML 3ML SQ SCH ×4 (05:48→20:40)
[2020-04-21 08:00] VITALS: BP 129/89; PULSE 77; RESP 19; TEMP 98.8
[2020-04-21] MEDS: CLOPIDOGREL BISULFATE 75 MG TAB PO SCH (08:52)
[2020-04-21] MEDS: AMLODIPINE BESYLATE 2.5 MG TAB PO SCH (08:52)
[2020-04-21] MEDS: METFORMIN HCL 500 MG TABLET PO SCH ×2 (08:52→18:24)
[2020-04-21] MEDS: VANCOMYCIN 1.25 GM in SODIUM CHLORIDE 0.9% 250 ML IV SCH ×2 (08:53→20:30)
[2020-04-21] MEDS: CARVEDILOL 3.125 MG TABLET PO SCH ×2 (08:53→20:31)
[2020-04-21] MEDS: CITALOPRAM 20 MG TABLET PO SCH (08:53)
[2020-04-21] MEDS: HONEY 1 APPL/ML TUBE TP SCH ×2 (08:54→18:27)
[2020-04-21] MEDS: INSULIN GLARGINE 100 UNITS/ML 10 ML VIAL SQ SCH (09:15)
[2020-04-21 12:00] VITALS: BP 133/84; PULSE 61; RESP 18; TEMP 98.2
--- NOTE | 2020-04-21 14:49 | NUR ---
REFERRAL TO [facility] IN PROCESS SPOFIDENCIO TO ANAI THIS MONIRNG RE REFERALL- NO LT BEDS, DISCUSSED WITH DR. PALMA, STATES BACK TO [facility] OR [facility], LONG CALL WITH DARRELL TORRES, DAUGHTER ON PHONE, STATES NOT [facility], WILL TRY [facility], TEARFUL, WANTS TO ENSURE THAT PATIENT WILL GET Abdi ABDI MD FOR WOUND, OK TO SEND REFERRAL, PKT/PASSR CREATED, COVID FORM SIGNED BY JACK LAZO AND FINAL MED REC SENT TO [facility], PENDING PT NOTES. NOT SURE IF PT SI FOR VAN OR EMS. PENDING DC TODAY POSSIBLE Addendum: 04/21/20 at 1452 by VICKI SIMON RN Amended: Links added.
--- NOTE | 2020-04-21 14:52 | NUR ---
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 CM TO FOLLOW AND AMEND DISPO IF IT CHANGES Addendum: 04/21/20 at 1453 by VICKI SIMON RN CM Amended: Links added.
[2020-04-21 16:00] VITALS: BP 195/95; PULSE 66; RESP 19; TEMP 98.4
[2020-04-21] MEDS: ATORVASTATIN CALCIUM 20 MG TABLET PO SCH (20:31)
[2020-04-21 20:37] VITALS: BP 117/60; PULSE 68; RESP 18; TEMP 98
[2020-04-22 00:06] VITALS: BP 132/59; PULSE 66; RESP 20; TEMP 97.8
[2020-04-22] MEDS: ZOSYN 3.375GM+NS 50ML 50 ML IV SCH (01:49)
[2020-04-22 04:27] VITALS: BP 167/90; PULSE 72; RESP 20; TEMP 98
[2020-04-22] MEDS: 1/2 NORMAL SALINE 1,000 ML IV SCH ×2 (05:34→19:36)
[2020-04-22] MEDS: INSULIN LISPRO 100 UNIT/ML 3ML SQ SCH ×4 (06:45→21:47)
[2020-04-22 08:00] VITALS: BP 145/77; PULSE 69; RESP 18; TEMP 97.8
[2020-04-22] MEDS: CLOPIDOGREL BISULFATE 75 MG TAB PO SCH (09:53)
[2020-04-22] MEDS: AMLODIPINE BESYLATE 2.5 MG TAB PO SCH (09:53)
[2020-04-22] MEDS: METFORMIN HCL 500 MG TABLET PO SCH ×2 (09:53→17:18)
[2020-04-22] MEDS: AMOXICILLIN/POTASSIUM CLAV 875-125 TABLET PO SCH ×2 (09:54→21:41)
[2020-04-22] MEDS: CARVEDILOL 3.125 MG TABLET PO SCH ×2 (09:54→21:41)
[2020-04-22] MEDS: CITALOPRAM 20 MG TABLET PO SCH (09:54)
[2020-04-22] MEDS: HONEY 1 APPL/ML TUBE TP SCH ×2 (09:55→17:19)
[2020-04-22] MEDS: INSULIN GLARGINE 100 UNITS/ML 10 ML VIAL SQ SCH (10:03)
[2020-04-22] MEDS: ZYVOX 600 MG TAB PO SCH ×2 (11:36→23:45)
[2020-04-22 12:00] VITALS: BP 169/73; PULSE 72; RESP 18; TEMP 97.7
[2020-04-22 16:00] VITALS: BP 165/92; PULSE 69; RESP 18; TEMP 97.8
--- NOTE | 2020-04-22 17:04 | NUR ---
REFERRAL SENT TO [facility]- THEY HAV THE COVID TEST AND SCREENING FORM, THE PASSR, THE PKT THE NEW MED REC AND NOTES- EVERY THING TO MAKE A DECISION TO ADMIT DAUGHTER BERT CALLED X3 WITH LONG CONVERSATIONS- ATTEMPTED TO GET PATIENT INTO [facility] AND [facility] ON PT'S MANAGED MEDICARE SHORT TERM . EDUCATION DONE RE: SHORT TERM AND ASSISTED BENEFITS. CALLBACKS MADE TO THE FACILITY REPS. KELECHI SAGASTUME AT [facility] AGREED TO REVIEW CHART. PENDING CALL BACK Addendum: 04/22/20 at 1709 by VICKI SIMON RN CM Amended: Links added.
[2020-04-22 21:09] VITALS: BP 150/84; PULSE 67; RESP 20; TEMP 98.2
[2020-04-22] MEDS: ATORVASTATIN CALCIUM 20 MG TABLET PO SCH (21:41)
[2020-04-23] VITALS (7 sets, daily range): BP systolic 127–184; BP diastolic 71–89; PULSE 67–72; RESP 18–20; TEMP 97.8–98.4
[2020-04-23] MEDS: 1/2 NORMAL SALINE 1,000 ML IV SCH ×2 (05:00→15:00)
[2020-04-23] MEDS: INSULIN LISPRO 100 UNIT/ML 3ML SQ SCH ×4 (06:46→20:37)
[2020-04-23] MEDS: METFORMIN HCL 500 MG TABLET PO SCH ×2 (09:17→18:04)
[2020-04-23] MEDS: CARVEDILOL 3.125 MG TABLET PO SCH ×2 (09:17→22:47)
[2020-04-23] MEDS: AMLODIPINE BESYLATE 2.5 MG TAB PO SCH (09:17)
[2020-04-23] MEDS: AMOXICILLIN/POTASSIUM CLAV 875-125 TABLET PO SCH ×2 (09:18→22:46)
[2020-04-23] MEDS: ZYVOX 600 MG TAB PO SCH ×2 (09:18→22:46)
[2020-04-23] MEDS: CITALOPRAM 20 MG TABLET PO SCH (09:18)
[2020-04-23] MEDS: CLOPIDOGREL BISULFATE 75 MG TAB PO SCH (09:18)
[2020-04-23] MEDS: HONEY 1 APPL/ML TUBE TP SCH ×2 (09:18→16:45)
[2020-04-23] MEDS: INSULIN GLARGINE 100 UNITS/ML 10 ML VIAL SQ SCH (09:20)
--- NOTE | 2020-04-23 17:55 | NUR ---
CALLED MULTIPLE TIMES TO NR IN AM, RECD TEXT BACK AT [facility] THE REFERRAL SENT YESTERDAY DID NOT COME THROUGH PROPERLY, MADE PKT AND REP FROM [facility] PICKED UP AT [facility] ER DOOR MULTIPLE CALLS AND TEXT TO NR- STATES THEY ARE HAVING TROUBLE WITH HIS MEDICAID GETTING CORRECT INFORMATION ON HIS PRISON BENEFITS. LEFT LAST MESSAGE AT 1645 WITHOUT RESPONSE UNLIKELY TO GET AN ACCEPTANCE THIS WEEKEND. HAVE NOT TALKED TO DAUGHTER TODAY . PATIENT WILL PROBABLY BE WAITING HERE AT [facility] THIS WEEKEND. Addendum: 04/23/20 at 1800 by VICKI SIMON RN CM Amended: Links added.
[2020-04-23] MEDS: ATORVASTATIN CALCIUM 20 MG TABLET PO SCH (22:46)
[2020-04-24 04:00] VITALS: BP 127/75; PULSE 70; RESP 17; TEMP 98.1
[2020-04-24] MEDS: 1/2 NORMAL SALINE 1,000 ML IV SCH ×3 (05:08→22:48)
[2020-04-24] MEDS: INSULIN LISPRO 100 UNIT/ML 3ML SQ SCH ×4 (05:41→21:00)
[2020-04-24 08:00] VITALS: BP 161/78; PULSE 74; RESP 16; TEMP 97.9
[2020-04-24] MEDS: HONEY 1 APPL/ML TUBE TP SCH ×2 (08:10→16:45)
[2020-04-24] MEDS: AMOXICILLIN/POTASSIUM CLAV 875-125 TABLET PO SCH ×2 (09:26→22:48)
[2020-04-24] MEDS: ZYVOX 600 MG TAB PO SCH ×2 (09:26→22:48)
[2020-04-24] MEDS: CLOPIDOGREL BISULFATE 75 MG TAB PO SCH (09:26)
[2020-04-24] MEDS: AMLODIPINE BESYLATE 2.5 MG TAB PO SCH (09:26)
[2020-04-24] MEDS: CARVEDILOL 3.125 MG TABLET PO SCH ×2 (09:27→22:49)
[2020-04-24] MEDS: CITALOPRAM 20 MG TABLET PO SCH (09:27)
[2020-04-24] MEDS: INSULIN GLARGINE 100 UNITS/ML 10 ML VIAL SQ SCH (09:39)
[2020-04-24 11:00] VITALS: BP 128/75; PULSE 82; RESP 20; TEMP 98.5
[2020-04-24] MEDS: METFORMIN HCL 500 MG TABLET PO SCH ×2 (11:47→17:00)
[2020-04-24 16:00] VITALS: BP 158/85; PULSE 74; RESP 19; TEMP 98
[2020-04-24 20:00] VITALS: BP 132/76; PULSE 76; RESP 18; TEMP 98.3
[2020-04-24] MEDS: ATORVASTATIN CALCIUM 20 MG TABLET PO SCH (22:49)
[2020-04-25] VITALS (7 sets, daily range): BP systolic 135–169; BP diastolic 69–95; PULSE 71–77; RESP 18–20; TEMP 97.8–98.7
[2020-04-25] MEDS: INSULIN LISPRO 100 UNIT/ML 3ML SQ SCH ×4 (05:55→20:30)
[2020-04-25] MEDS: METFORMIN HCL 500 MG TABLET PO SCH ×2 (08:27→16:26)
[2020-04-25] MEDS: AMOXICILLIN/POTASSIUM CLAV 875-125 TABLET PO SCH ×2 (08:27→21:45)
[2020-04-25] MEDS: CITALOPRAM 20 MG TABLET PO SCH (08:28)
[2020-04-25] MEDS: CARVEDILOL 3.125 MG TABLET PO SCH ×2 (08:28→21:45)
[2020-04-25] MEDS: CLOPIDOGREL BISULFATE 75 MG TAB PO SCH (08:28)
[2020-04-25] MEDS: AMLODIPINE BESYLATE 2.5 MG TAB PO SCH (08:28)
[2020-04-25] MEDS: HONEY 1 APPL/ML TUBE TP SCH ×2 (08:29→15:30)
[2020-04-25] MEDS: 1/2 NORMAL SALINE 1,000 ML IV SCH ×2 (08:29→15:31)
[2020-04-25] MEDS: INSULIN GLARGINE 100 UNITS/ML 10 ML VIAL SQ SCH (08:36)
[2020-04-25] MEDS: ZYVOX 600 MG TAB PO SCH ×2 (12:04→21:45)
[2020-04-25] MEDS: SODIUM CHLORIDE 0.9% 1000ML 1,000 ML IV SCH ×2 (12:04→22:20)
[2020-04-25] MEDS: ATORVASTATIN CALCIUM 20 MG TABLET PO SCH (21:45)
[2020-04-26] VITALS (12 sets, daily range): BP systolic 121–169; BP diastolic 57–87; PULSE 60–80; RESP 18–20; TEMP 97–98.6
[2020-04-26] MEDS: INSULIN LISPRO 100 UNIT/ML 3ML SQ SCH ×4 (05:35→20:30)
[2020-04-26] MEDS: SODIUM CHLORIDE 0.9% 1000ML 1,000 ML IV SCH ×3 (06:06→19:41)
[2020-04-26] MEDS: METFORMIN HCL 500 MG TABLET PO SCH ×2 (08:00→17:15)
[2020-04-26] MEDS: INSULIN GLARGINE 100 UNITS/ML 10 ML VIAL SQ SCH (09:00)
[2020-04-26] MEDS: CARVEDILOL 3.125 MG TABLET PO SCH ×3 (09:00→19:43)
[2020-04-26] MEDS: AMLODIPINE BESYLATE 2.5 MG TAB PO SCH (09:21)
[2020-04-26] MEDS: CLOPIDOGREL BISULFATE 75 MG TAB PO SCH (09:21)
[2020-04-26] MEDS: HONEY 1 APPL/ML TUBE TP SCH ×2 (09:22→17:15)
[2020-04-26] MEDS: ZYVOX 600 MG TAB PO SCH ×2 (09:22→19:42)
[2020-04-26] MEDS: AMOXICILLIN/POTASSIUM CLAV 875-125 TABLET PO SCH ×2 (09:22→19:42)
[2020-04-26] MEDS ORDERED: LIDOCAINE HCL 2% 20ML ONE (10:45)
[2020-04-26] MEDS ORDERED: MIDAZOLAM HCL 1 MG/ML 2ML VIAL ONE (10:45)
[2020-04-26] MEDS ORDERED: HEPARIN SODIUM 1000UNIT/ML 10ML VIAL ONE (10:45)
[2020-04-26] MEDS ORDERED: FENTANYL CITRATE PF 50 MCG/1 ML 2ML VIAL ONE (10:45)
[2020-04-26] MEDS ORDERED: IODIXANOL 320 MG/ML 100 ML VIAL ONE (10:45)
[2020-04-26] MEDS ORDERED: NITROGLYCERIN 2 MG/VIAL VIAL IV ONE (10:46)
[2020-04-26] MEDS ORDERED: ASPIRIN 325MG EC TAB 325 MG TABLET.DR PO ONE (12:00)
[2020-04-26] MEDS ORDERED: CLOPIDOGREL BISULFATE 300 MG TAB ONE (12:00)
[2020-04-26] MEDS: CITALOPRAM 20 MG TABLET PO SCH (17:15)
[2020-04-26] MEDS: ATORVASTATIN CALCIUM 20 MG TABLET PO SCH (19:42)
[2020-04-27] VITALS (8 sets, daily range): BP systolic 109–159; BP diastolic 49–85; PULSE 71–79; RESP 16–20; TEMP 97–100
--- NOTE | 2020-04-27 02:01 | NUR ---
wound care conducted on right ankle with normal saline, betadine, medihoney, vaseline gauze, and kerlix and tape. wound care conducted on right great toe with betadine. pictures taken before wound care and placed on the chart.
[2020-04-27] MEDS: INSULIN LISPRO 100 UNIT/ML 3ML SQ SCH ×4 (05:08→20:19)
[2020-04-27] MEDS: METFORMIN HCL 500 MG TABLET PO SCH ×2 (05:16→16:59)
[2020-04-27] MEDS: ZYVOX 600 MG TAB PO SCH ×2 (09:22→19:47)
[2020-04-27] MEDS: AMOXICILLIN/POTASSIUM CLAV 875-125 TABLET PO SCH ×2 (09:22→19:47)
[2020-04-27] MEDS: AMLODIPINE BESYLATE 2.5 MG TAB PO SCH (09:22)
[2020-04-27] MEDS: ASPIRIN 81MG TAB.CHEW PO SCH (09:22)
[2020-04-27] MEDS: CITALOPRAM 20 MG TABLET PO SCH (09:22)
[2020-04-27] MEDS: CLOPIDOGREL BISULFATE 75 MG TAB PO SCH (09:23)
[2020-04-27] MEDS: CARVEDILOL 3.125 MG TABLET PO SCH ×2 (09:23→19:47)
[2020-04-27] MEDS: HONEY 1 APPL/ML TUBE TP SCH ×2 (09:23→16:58)
[2020-04-27] MEDS: INSULIN GLARGINE 100 UNITS/ML 10 ML VIAL SQ SCH (09:28)
[2020-04-27] MEDS: ATORVASTATIN CALCIUM 20 MG TABLET PO SCH (19:47)
--- NOTE | 2020-04-27 21:00 | NUR ---
doctor curtis present at the bedside to assess the patient
--- NOTE | 2020-04-27 21:50 | NUR ---
paged doctor med for patient's results of covid-19 positive. pending call back
--- NOTE | 2020-04-27 21:55 | NUR ---
paged nicolette willard about patient's positive covid results. pending call back
--- NOTE | 2020-04-27 22:11 | NUR ---
paged doctor med again. texted him and doctor ben about positive covid results. pending call back
--- NOTE | 2020-04-27 22:34 | NUR ---
dr. jovel responded and is aware of patient's positive covid results. he wants me to let dr. contreras in the am.
--- NOTE | 2020-04-27 23:00 | NUR ---
patient has a fever of 100 degrees farenheit due to high room temperature of 75 degrees, so i provided ice packs on his body and lowered the room temperature to 68 degrees. recheck of his temperature is 97.5 degrees farenheit.
[2020-04-28] VITALS (9 sets, daily range): BP systolic 130–169; BP diastolic 69–88; PULSE 66–81; RESP 16–22; TEMP 97.5–98.4
--- NOTE | 2020-04-28 | NUR ---
wound care conducted on patient's right ankle with normal saline, betadine, medihoney, vaseline gauze, kerlix and tape. no other issues.
--- NOTE | 2020-04-28 02:09 | NUR ---
paged doctor med on patient's fever of 100 degrees farenheit. pending call back.
--- NOTE | 2020-04-28 03:31 | NUR ---
paged doctor med about patient's fever of 100.4. pending call back
[2020-04-28] MEDS: CARVEDILOL 3.125 MG TABLET PO SCH ×2 (04:01→20:40)
--- NOTE | 2020-04-28 05:17 | NUR ---
doctor med ordered acetaminophen 650 mg q4 prn for fever.
[2020-04-28] MEDS: INSULIN LISPRO 100 UNIT/ML 3ML SQ SCH ×4 (05:49→20:39)
--- NOTE | 2020-04-28 08:38 | NUR ---
Called daughter to notify of positive covid results and plan to transfer to covid unit once room available.
[2020-04-28] MEDS: HONEY 1 APPL/ML TUBE TP SCH ×2 (09:00→16:45)
[2020-04-28] MEDS: ASPIRIN 81MG TAB.CHEW PO SCH (09:33)
[2020-04-28] MEDS: METFORMIN HCL 500 MG TABLET PO SCH ×2 (09:33→17:51)
[2020-04-28] MEDS: AMOXICILLIN/POTASSIUM CLAV 875-125 TABLET PO SCH ×2 (09:33→20:40)
[2020-04-28] MEDS: ZYVOX 600 MG TAB PO SCH ×2 (09:33→21:52)
[2020-04-28] MEDS: CLOPIDOGREL BISULFATE 75 MG TAB PO SCH (09:34)
[2020-04-28] MEDS: CITALOPRAM 20 MG TABLET PO SCH (09:34)
[2020-04-28] MEDS: AMLODIPINE BESYLATE 2.5 MG TAB PO SCH (09:34)
[2020-04-28] MEDS: INSULIN GLARGINE 100 UNITS/ML 10 ML VIAL SQ SCH (09:35)
--- NOTE | 2020-04-28 10:15 | NUR ---
Found out with KimRN and KettyRN, Charge-Nurse that patient is positive COVID-19 Infection.Result came in last night.Awaiting patient to be transferred to [facility] floor prior to perform skilled Physical Therapy tx if still indicated at this time. Addendum: 04/28/20 at 1021 by JAMES BURCIAGA, PT PT Amended: Links added.
--- NOTE | 2020-04-28 12:00 | NUR ---
JULIET Note: [facility] Ann RENO pending approval CM spoke to Gilberto liriano/Mary Ann RENO, pt currently still pending approval. EMS arranged and faxed for today in case pt receive approval. Primary nurse aware. CM to cont to follow up.
--- NOTE | 2020-04-28 15:39 | NUR ---
Provided report to Gema GUTIERREZ for patient transfer to Rm. [id number].
[2020-04-28] MEDS: ATORVASTATIN CALCIUM 20 MG TABLET PO SCH (20:40)
[2020-04-29 03:27] VITALS: BP 143/73; PULSE 70; RESP 16; TEMP 98.5
[2020-04-29] MEDS: INSULIN LISPRO 100 UNIT/ML 3ML SQ SCH ×4 (07:30→20:31)
[2020-04-29 08:00] VITALS: BP 140/70; PULSE 74; RESP 18; TEMP 97.7
[2020-04-29] MEDS: AMOXICILLIN/POTASSIUM CLAV 875-125 TABLET PO SCH ×2 (08:21→20:27)
[2020-04-29] MEDS: METFORMIN HCL 500 MG TABLET PO SCH ×2 (08:21→20:27)
[2020-04-29] MEDS: CLOPIDOGREL BISULFATE 75 MG TAB PO SCH (08:23)
[2020-04-29] MEDS: ASPIRIN 81MG TAB.CHEW PO SCH (08:23)
[2020-04-29] MEDS: ZYVOX 600 MG TAB PO SCH ×2 (08:24→20:27)
[2020-04-29] MEDS: CITALOPRAM 20 MG TABLET PO SCH (08:26)
[2020-04-29] MEDS: CARVEDILOL 3.125 MG TABLET PO SCH ×2 (08:26→20:29)
[2020-04-29] MEDS: AMLODIPINE BESYLATE 2.5 MG TAB PO SCH (08:26)
[2020-04-29] MEDS: INSULIN GLARGINE 100 UNITS/ML 10 ML VIAL SQ SCH (08:36)
[2020-04-29 12:00] VITALS: BP 107/60; PULSE 79; RESP 18; TEMP 97.9
--- NOTE | 2020-04-29 13:22 | NUR ---
RDSCREEN - LOS X 11 Pt admitted with Ischemic leg ulcer. Pt tolerating Heart healthy diet order with no report of GI distress, Good PO intake at 100%. Pt with increased Protein needs secondary to wound healing. Recommend Kenton BID, 500mg Vitamin C (BID), 220mg ZnSO4 (QD) for wound healing support. RD to continue to monitor. Please notify as additional nutrition concerns arise. Thank you. Addendum: 04/29/20 at [address] Amended: Links added.
[2020-04-29] MEDS: HONEY 1 APPL/ML TUBE TP SCH ×2 (14:48→16:45)
--- NOTE | 2020-04-29 15:49 | NUR ---
CM NOTE/DCP CHANGED TO VERANDA PATIENT NOW COVID POSITIVE. PATIENT CALLED TO DISCUSS DISCHARGE PLANNING. PER PATIENT, OK TO TALK TO DAUGHTER, DARRELL TORRES. 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 [facility] CURRENTLY ACCEPTING COVID POSITIVE PATIENTS, PER DAUGHTER, OK WITH [facility]. PATIENT CALLED, OK FOR [facility]. ANYA COMPLETED FOR [facility]. PRIMARY NURSE, SILVINO GUTIERREZ, MADE AWARE. ANOOP BELL TUBE MOLDER FIBERGLASS, MADE AWARE ABOUT CHANGE IN PLAN. [facility] CALLED, CLINICAL PACKET FAXED AND RECEIVED, CM TO FOLLOW UP. SECOND COVID TEST ANTICIPATED FOR 05/03. PER GAIL, PATIENT MAY BE TRANSFERRED IF ACCEPTED EVEN IF COVID POSITIVE IS PATIENT IS NOT HAVING ASYMPTOMATIC. CM TO FOLLOW UP ACCORDINGLY.
[2020-04-29 16:00] VITALS: BP 113/58; PULSE 82; RESP 18; TEMP 98.5
--- NOTE | 2020-04-29 16:16 | NUR ---
CM NOTE/[facility] DENIED PER GAIL AT [facility], PATIENT DENIED. ANOOP BELL PROBLEM MANAGER MADE AWARE. PENDING MANAGER GROUP PLACEMENT SNF
[2020-04-29] MEDS: ATORVASTATIN CALCIUM 20 MG TABLET PO SCH (20:27)
[2020-04-29 20:37] VITALS: BP 140/77; PULSE 83; RESP 18; TEMP 98.3
[2020-04-29 23:36] VITALS: BP 137/78; PULSE 84; RESP 19; TEMP 98.7
--- NOTE | 2020-04-29 23:48 | NUR ---
Assessment Pt is in the bed resting peacefully. He stated that he does not need anything at the moment. Vitals are stable, Will be monitored closely.
[2020-04-30 03:23] VITALS: BP 134/64; PULSE 78; RESP 21; TEMP 98.4
[2020-04-30] MEDS: INSULIN LISPRO 100 UNIT/ML 3ML SQ SCH ×4 (06:18→20:21)
[2020-04-30] MEDS: HONEY 1 APPL/ML TUBE TP SCH ×2 (08:04→16:45)
[2020-04-30] MEDS: CLOPIDOGREL BISULFATE 75 MG TAB PO SCH (08:05)
[2020-04-30] MEDS: AMLODIPINE BESYLATE 2.5 MG TAB PO SCH (08:05)
[2020-04-30] MEDS: METFORMIN HCL 500 MG TABLET PO SCH ×2 (08:05→20:20)
[2020-04-30] MEDS: ZYVOX 600 MG TAB PO SCH ×2 (08:05→20:17)
[2020-04-30] MEDS: CITALOPRAM 20 MG TABLET PO SCH (08:05)
[2020-04-30 08:06] VITALS: BP 116/69; PULSE 75; RESP 16; TEMP 97.4
[2020-04-30] MEDS: ASPIRIN 81MG TAB.CHEW PO SCH (08:06)
[2020-04-30] MEDS: CARVEDILOL 3.125 MG TABLET PO SCH ×2 (08:07→20:17)
[2020-04-30] MEDS: INSULIN GLARGINE 100 UNITS/ML 10 ML VIAL SQ SCH (08:11)
[2020-04-30] MEDS: AMOXICILLIN/POTASSIUM CLAV 875-125 TABLET PO SCH ×2 (08:26→20:17)
[2020-04-30 10:24] VITALS: BP 128/72; PULSE 77; RESP 16; TEMP 98
[2020-04-30 16:39] VITALS: BP 117/66; PULSE 76; RESP 16; TEMP 97.5
[2020-04-30 19:00] VITALS: BP 136/74; PULSE 79; RESP 21; TEMP 98
[2020-04-30] MEDS: ATORVASTATIN CALCIUM 20 MG TABLET PO SCH (20:16)
[2020-04-30 23:41] VITALS: BP 172/91; PULSE 77; RESP 20; TEMP 98
--- NOTE | 2020-05-01 01:56 | NUR ---
Assessment Patient is lying in bed resting peacefully. I just went to check on him & he stated that he was feeling fine and does not need anything. His BP is being closely monitored. Pt is stable and absent of S/S of distress.
[2020-05-01 03:59] VITALS: BP 137/76; PULSE 77; RESP 20; TEMP 98.1
[2020-05-01] MEDS: INSULIN LISPRO 100 UNIT/ML 3ML SQ SCH ×4 (06:16→20:24)
[2020-05-01 08:00] VITALS: BP 138/78; PULSE 73; RESP 20; TEMP 98.1
[2020-05-01] MEDS: METFORMIN HCL 500 MG TABLET PO SCH ×2 (08:17→16:53)
[2020-05-01] MEDS: CLOPIDOGREL BISULFATE 75 MG TAB PO SCH (08:17)
[2020-05-01] MEDS: CITALOPRAM 20 MG TABLET PO SCH (08:17)
[2020-05-01] MEDS: ASPIRIN 81MG TAB.CHEW PO SCH (08:17)
[2020-05-01] MEDS: AMLODIPINE BESYLATE 2.5 MG TAB PO SCH (08:18)
[2020-05-01] MEDS: CARVEDILOL 3.125 MG TABLET PO SCH ×2 (08:18→20:26)
[2020-05-01] MEDS: INSULIN GLARGINE 100 UNITS/ML 10 ML VIAL SQ SCH (08:19)
[2020-05-01] MEDS: HONEY 1 APPL/ML TUBE TP SCH ×2 (08:20→16:58)
[2020-05-01] MEDS: AMOXICILLIN/POTASSIUM CLAV 875-125 TABLET PO SCH ×2 (08:22→20:29)
[2020-05-01] MEDS: ZYVOX 600 MG TAB PO SCH ×2 (08:24→20:26)
[2020-05-01 12:00] VITALS: BP 120/63; PULSE 75; RESP 19; TEMP 98
--- NOTE | 2020-05-01 13:31 | NUR ---
CHECKED WITH NURSE AND PATIENT HAS BEEN PERFORMING EXERCISES IN HIS ROOM. Addendum: 05/01/20 at 1331 by RADHA SHEPPARD PT Amended: Links added.
[2020-05-01 16:00] VITALS: BP 144/82; PULSE 79; RESP 19; TEMP 98
--- NOTE | 2020-05-01 18:20 | NUR ---
Pt is alert in bed, vitals are stable, pt showed no signs and symptoms of distress, will continue to monitor
[2020-05-01 20:16] VITALS: BP 139/75; PULSE 76; RESP 18; TEMP 98.3
[2020-05-01] MEDS: ATORVASTATIN CALCIUM 20 MG TABLET PO SCH (20:26)
[2020-05-02] VITALS (7 sets, daily range): BP systolic 122–148; BP diastolic 58–77; PULSE 77–84; RESP 16–19; TEMP 98–98.7
--- NOTE | 2020-05-02 02:51 | NUR ---
Assessment Pt is in the bed resting peacefully. He is not showing any S/S of distress. Vitals are stable & the patient is being closely monitored.
[2020-05-02] MEDS: INSULIN LISPRO 100 UNIT/ML 3ML SQ SCH ×4 (06:31→21:00)
[2020-05-02] MEDS: METFORMIN HCL 500 MG TABLET PO SCH ×2 (08:59→17:49)
[2020-05-02] MEDS: ASPIRIN 81MG TAB.CHEW PO SCH (08:59)
[2020-05-02] MEDS: CITALOPRAM 20 MG TABLET PO SCH (09:00)
[2020-05-02] MEDS: AMLODIPINE BESYLATE 2.5 MG TAB PO SCH (09:00)
[2020-05-02] MEDS: HONEY 1 APPL/ML TUBE TP SCH ×2 (09:00→15:59)
[2020-05-02] MEDS: CLOPIDOGREL BISULFATE 75 MG TAB PO SCH (09:00)
[2020-05-02] MEDS: CARVEDILOL 3.125 MG TABLET PO SCH ×2 (09:01→20:11)
[2020-05-02] MEDS: INSULIN GLARGINE 100 UNITS/ML 10 ML VIAL SQ SCH (09:06)
--- NOTE | 2020-05-02 14:01 | NUR ---
CHECKED WITH NURSE REGARDING FOLLOW THROUGH OF HEP. Addendum: 05/02/20 at 1402 by RADHA SHEPPARD PT Amended: Links added.
[2020-05-02] MEDS: NYSTATIN 15 GM POWDER TP SCH ×2 (14:53→20:12)
--- NOTE | 2020-05-02 16:09 | NUR ---
COVID+ PT, ISOLATION PRECAUTIONS MAINTAINED. AAOx2-3. PLEASANT MOOD. ABLE TO MAKE NEEDS KNOWN. RESPIRATIONS EVEN AND UNLABORED ON RA. NO APPARENT DISTRESS NOTED. HX OF CVA WITH RIGHT SIDED WEAKNESS. REPOSITIONED Q2H AND NEEDED. REDNESS TO GROIN AREA REPORTED TO DR. BARCLAY UPON ROUNDING, VERBAL ORDER RECEIVED FOR NYSTATIN POWDER BID. WOUND CARE TO RIGHT ANKLE DONE, TOLERATED. DENIED PAIN. HOUR ROUNDLY FOR PATIENTS SAFETY. SAFETY MEASURES IN PLACE.
[2020-05-02] MEDS: ATORVASTATIN CALCIUM 20 MG TABLET PO SCH (20:12)
--- NOTE | 2020-05-03 03:54 | NUR ---
Assessment Patient has just been cleaned and turned. He is lying in the bed watching tv. Vitals are stable. Patient is being monitored closely.
[2020-05-03 04:00] VITALS: BP 127/73; PULSE 81; RESP 19; TEMP 97.8
[2020-05-03] MEDS: INSULIN LISPRO 100 UNIT/ML 3ML SQ SCH ×4 (05:52→20:57)
[2020-05-03] MEDS: INSULIN GLARGINE 100 UNITS/ML 10 ML VIAL SQ SCH (07:38)
[2020-05-03] MEDS: ASPIRIN 81MG TAB.CHEW PO SCH (07:39)
[2020-05-03] MEDS: AMLODIPINE BESYLATE 2.5 MG TAB PO SCH (07:39)
[2020-05-03] MEDS: CITALOPRAM 20 MG TABLET PO SCH (07:44)
[2020-05-03] MEDS: CLOPIDOGREL BISULFATE 75 MG TAB PO SCH (07:44)
[2020-05-03] MEDS: CARVEDILOL 3.125 MG TABLET PO SCH ×2 (07:44→20:24)
[2020-05-03] MEDS: NYSTATIN 15 GM POWDER TP SCH ×2 (07:45→20:24)
[2020-05-03] MEDS: HONEY 1 APPL/ML TUBE TP SCH ×2 (07:45→17:59)
[2020-05-03] MEDS: METFORMIN HCL 500 MG TABLET PO SCH ×2 (07:45→17:57)
[2020-05-03 09:44] VITALS: BP 134/68; PULSE 71; RESP 18; TEMP 96.3
[2020-05-03 13:34] VITALS: BP 115/60; PULSE 77; RESP 20; TEMP 98.5
--- NOTE | 2020-05-03 15:11 | NUR ---
CM NOTE/DCP SNF HALFWAY CALLED DAUGHTER TO LET HER KNOW IF OK WITH SNF BEING OUTSIDE OF [place]. PER DAUGHTER, OK WITH SNF IN [place]. CM TO CONTINUE TO FIND RECEIVER BULK SYSTEM SNF THAT WILL ACCEPT COVID POSITIVE.
[2020-05-03 20:00] VITALS: BP 136/75; PULSE 78; RESP 16; TEMP 97.8
[2020-05-03] MEDS: ATORVASTATIN CALCIUM 20 MG TABLET PO SCH (20:22)
[2020-05-04] VITALS (7 sets, daily range): BP systolic 113–151; BP diastolic 59–92; PULSE 57–91; RESP 16–22; TEMP 97.5–98.8
--- NOTE | 2020-05-04 04:21 | NUR ---
assessment patient had no complaints of any pain.. dressing with honey applied to right ankle. patient turned throughout the night. although he does not like to turn. Will continue to monitor.
[2020-05-04] MEDS: INSULIN LISPRO 100 UNIT/ML 3ML SQ SCH ×4 (05:30→20:47)
[2020-05-04] MEDS: CARVEDILOL 3.125 MG TABLET PO SCH ×2 (08:10→20:47)
[2020-05-04] MEDS: AMLODIPINE BESYLATE 2.5 MG TAB PO SCH (08:10)
[2020-05-04] MEDS: ASPIRIN 81MG TAB.CHEW PO SCH (08:10)
[2020-05-04] MEDS: CITALOPRAM 20 MG TABLET PO SCH (08:10)
[2020-05-04] MEDS: CLOPIDOGREL BISULFATE 75 MG TAB PO SCH (08:11)
[2020-05-04] MEDS: HONEY 1 APPL/ML TUBE TP SCH ×2 (08:14→17:13)
[2020-05-04] MEDS: NYSTATIN 15 GM POWDER TP SCH ×2 (08:14→20:48)
[2020-05-04] MEDS: METFORMIN HCL 500 MG TABLET PO SCH ×2 (08:15→17:13)
[2020-05-04] MEDS: INSULIN GLARGINE 100 UNITS/ML 10 ML VIAL SQ SCH (09:58)
--- NOTE | 2020-05-04 15:14 | NUR ---
CM NOTE/DCP SNF UNABLE TO ADMIT CALLED FOLLOWING SNF TO SEE IF OK WITH ADMISSION OF RETAIL SERVICE LEAD MERCHANDISER COVID POSITIVE PATIENT, DECLINED: [place], [facility], [facility], [facility], [facility], [facility], [facility] [place], [facility], [facility], [facility], [facility], [facility], [facility], [facility], [facility], [facility], [facility], [facility] AND [facility]. MADE A CALL TO DAUGHTER, DARRELL TORRES, TO LET HER KNOW IF SNF RETAIL SERVICE LEAD MERCHANDISER BED NOT AVAILABLE AND TO SEE IF PATIENT CAN BE CARED FOR AT HOME. PER DAUGHTER SHE LIVES WITH A TOTAL OF 5 PEOPLE IN A 1 BEDROOM APARTMENT INCLUDING HER MENTALLY CHALLENGED BROTHER WHO IS COVID POSITIVE AND STATES SHE PHYSICALLY DOESNT HAVE ROOM FOR PATIENT TO LIVE WITH HER. WAS AT [facility] RETAIL SERVICE LEAD MERCHAND[facility] PRIOR BUT SHE FELT HE WAS NOT BEING TAKEN CARE OF PROPERLY AND PULLED HIM OUT. I HAVE REACHED OUT TO CM DIRECTOR AND KILN HEAD HOUSE OPERATOR FOR ASSISTANCE WITH CASE. MADHAV LOPEZ TEACHERS ASSISTANT AWARE OF CASE. CM TO FOLLOW UP ACCORDINGLY.
[2020-05-04] MEDS: ATORVASTATIN CALCIUM 20 MG TABLET PO SCH (20:47)
[2020-05-05 03:27] VITALS: BP 131/75; PULSE 77; RESP 19; TEMP 98.4
[2020-05-05] MEDS: INSULIN LISPRO 100 UNIT/ML 3ML SQ SCH ×4 (05:42→21:00)
[2020-05-05 08:00] VITALS: BP_SYST 104; BP_SYST 131; BP_DIAS 64; BP_DIAS 78; PULSE 64; PULSE 75; RESP 18; TEMP 99.1; TEMP 99.2
[2020-05-05] MEDS: METFORMIN HCL 500 MG TABLET PO SCH ×2 (08:14→17:52)
[2020-05-05] MEDS: CARVEDILOL 3.125 MG TABLET PO SCH ×2 (08:14→20:04)
[2020-05-05] MEDS: CITALOPRAM 20 MG TABLET PO SCH (08:14)
[2020-05-05] MEDS: CLOPIDOGREL BISULFATE 75 MG TAB PO SCH (08:14)
[2020-05-05] MEDS: AMLODIPINE BESYLATE 2.5 MG TAB PO SCH (08:15)
[2020-05-05] MEDS: ASPIRIN 81MG TAB.CHEW PO SCH (08:15)
[2020-05-05] MEDS: INSULIN GLARGINE 100 UNITS/ML 10 ML VIAL SQ SCH (08:17)
[2020-05-05] MEDS: NYSTATIN 15 GM POWDER TP SCH ×2 (08:17→20:04)
[2020-05-05] MEDS: HONEY 1 APPL/ML TUBE TP SCH ×2 (08:17→17:33)
[2020-05-05 12:58] VITALS: BP 120/61; PULSE 69; RESP 18; TEMP 98.1
--- NOTE | 2020-05-05 15:48 | NUR ---
Travon called daughter Delores [phone] regarding denials for NH placement for pt. Informed daughter that CM has attempted all NHs from [place] to [place] and everyone has denied. 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 Daughter reports family took pt out of [facility] because of covid outbreak in facility. Daughter stated that Mechanical Operator told her that discharge could be temporary until Covid was under control. Daughter states it was her intention to place pt back at [facility] after outbreak. Informed daughter that [facility] or [place] of [place] were only options. Daughter agreeable to try [facility] or [place] where pt has a son.
[2020-05-05 16:00] VITALS: BP 146/88; PULSE 71; RESP 18; TEMP 97.4
--- NOTE | 2020-05-05 16:39 | NUR ---
[facility] DENIED Sw spoke to Marichuy at [facility]. Per Marichuy, when covid out break occurred, daughter contacted Media, and went on Social media blasting facility and hr administrator. Daughter also did this to a facility in [place]. This is reason pt returning to [facility] and probably a lot of other facilities in the [place] is not an option. Travon called daughter and informed [facility] was not an option. Informed we would have to start looking outside the [place]. Daughter states pt has a son in and they would prefer there. Asked daughter to have her brother contact NHs in his area and see if anyone would be open to accepting a covid + facility. DAughter to contact brother. Janice Rashid [facility], contacted co worker in was was given names of facilities in accepting covid +pts. Janice Appiah CM the list to contact. JULIET aware.
--- NOTE | 2020-05-05 17:00 | NUR ---
CM NOTE/ANYA FOR SNF IN [place] ANYA COMPLETED FOR SNF IN [place]. MADHAV UQIGLEY FOR BENCHMARK GROUP MADE AWARE. PER DAUGHTERDARRELL, STATES APS TOLD HER SHE CANNOT TAKE HER FATHER HOME DUE TO UNSAFE CONDITIONS. WILL CALL APS TOMORROW [facility] [place] SNF FOR OIL ANALYST COVID POSITIVE BED AVAILABLE.
--- NOTE | 2020-05-05 18:14 | NUR ---
Pt is alert, showed no signs and symptoms of distress, stated no pain, will continue to monitor, discharge held by registered nurse hh case manager, read registered nurse hh case manager note,
[2020-05-05 20:04] VITALS: BP 122/62; PULSE 79; RESP 16; TEMP 97.7
[2020-05-05] MEDS: ATORVASTATIN CALCIUM 20 MG TABLET PO SCH (20:04)
[2020-05-06 00:04] VITALS: BP 133/77; PULSE 60; RESP 18; TEMP 99.1
--- NOTE | 2020-05-06 02:04 | NUR ---
assessment patient alert and oriented times 3. no complaints of any pain. the patient has a wound on his right upper leg towards the buttocks from the diaper cutting into him. A dressing was applied. vitals stable will continue to monitor.
[2020-05-06 04:04] VITALS: BP 154/75; PULSE 70; RESP 18; TEMP 98.1
[2020-05-06] MEDS: INSULIN LISPRO 100 UNIT/ML 3ML SQ SCH ×4 (06:47→20:32)
[2020-05-06 07:00] VITALS: BP 157/76; PULSE 66; RESP 20; TEMP 98.1
[2020-05-06] MEDS: CLOPIDOGREL BISULFATE 75 MG TAB PO SCH (07:31)
[2020-05-06] MEDS: CITALOPRAM 20 MG TABLET PO SCH (07:31)
[2020-05-06] MEDS: CARVEDILOL 3.125 MG TABLET PO SCH ×2 (07:35→19:31)
[2020-05-06] MEDS: ASPIRIN 81MG TAB.CHEW PO SCH (07:35)
[2020-05-06] MEDS: AMLODIPINE BESYLATE 2.5 MG TAB PO SCH (07:35)
[2020-05-06] MEDS: METFORMIN HCL 500 MG TABLET PO SCH ×2 (07:35→17:39)
[2020-05-06] MEDS: INSULIN GLARGINE 100 UNITS/ML 10 ML VIAL SQ SCH (07:42)
[2020-05-06] MEDS: HONEY 1 APPL/ML TUBE TP SCH ×2 (09:07→17:39)
[2020-05-06] MEDS: NYSTATIN 15 GM POWDER TP SCH ×2 (09:07→20:05)
[2020-05-06 12:36] VITALS: BP 141/89; PULSE 73; RESP 20; TEMP 97.9
--- NOTE | 2020-05-06 13:54 | NUR ---
APS / SON Travon called Cristine Bass [id number], APS casewker. APS states case was closed on March 26, and reporting had nothing to do with son and pt's relationship. Pt was staying with son and his and they had provider services in the home to assist with pt's care. APS was not aware of son's and pt's relationship being an issue. Son is Merritt Keith [phone] or [phone]. Son states that he owns a construction company and works all day and that providers told him pt's level of care was too much, pt needed 24/7 care in a nursing facility. Son acknowledge that sister Delores had made a mess of things by "running her mouth" and now no NH will accept pt. Son states that [facility] did not do their part in caring for pt in an acceptable manner and that family had placed a camera in pt's room to monitor care pt was receiving at [facility]. Son states they have video of how long it took for staff to respond to call lights and care they provided to pt. Son stated that this was not acceptable care and family had a right to be upset and concerned with care they were providing. Explained to son that no facility was accepting pt in [place] and we needed family assistance for placement in . Son states that he is Bipolar and anxiety of caring for pt was more than he could handle. Son provided name for brother in [place] [phone]. Sw spoke to JULIET Ley regarding above. Jil has spoken to 14 NHs in and they are either not accepting pt's or not accepting covid + pts. Sw called [facility] and [facility] neither are accepting patients at this time.
--- NOTE | 2020-05-06 17:44 | NUR ---
CM NOTE/ [place] [facility] REFERRAL PER DAUGHTER DARRELL, BOTH HER AND HER BROTHER WORK AND CANNOT ASSIST WITH CALLING SNF IN [place] FOR RESIDENTIAL BED. PER DAUGHTER, TOO STRESSED AND DEPRESSED WITH SITUATION. CALLED 64 SNF FACILITIES IN [place] AND ONLY 2 SAID YES TO REFERRAL. CLINICAL PACKET FAXED TO [facility] PHONE#[phone] FAX#[phone]. 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 ALSO FAXED CLINICAL PACKET TO [facility] PHONE# [phone] FAX#[phone]. PER EDDIE, ACCEPTING COVID PATIENTS WITH A POSSIBILITY THAT HE CAN TAKE A LONG TERMER. DAUGHTER, DARRELL, MADE AWARE. SOCAL SERVICES AND CM DIRECTOR, JACK SERRANO, MADE AWARE. PATIENT TO BE RE TESTED FOR COVID TOMORROW, CURRENTLY POSITIVE RESULTS. CM TO TO FOLLOW UP, REPORT GIVEN VIA EMAIL.
--- NOTE | 2020-05-06 18:01 | NUR ---
Pt is alert, showed no signs a symptoms of distress, case management called to say a covid19 swab test will be done tomorrow to test to see if the pt is still positive because it's been 14 days since his last test, pt stated no pain, vitals stable, will continue to monitor pt,
[2020-05-06 18:41] VITALS: BP 159/87; PULSE 108; RESP 20; TEMP 98.8
[2020-05-06 19:00] VITALS: BP 146/80; PULSE 78; RESP 19; TEMP 98.1
[2020-05-06] MEDS: ATORVASTATIN CALCIUM 20 MG TABLET PO SCH (19:31)
[2020-05-07] VITALS: BP 157/80; PULSE 76; RESP 18; TEMP 98.3
[2020-05-07] MEDS: ACETAMINOPHEN 325 MG TAB PO PRN ×2 (00:05→01:19)
[2020-05-07 04:00] VITALS: BP 122/53; PULSE 67; RESP 18; TEMP 98.1
--- NOTE | 2020-05-07 04:28 | NUR ---
assessment Pt. is alert and oriented times3. complained of back pain earlier in the night i gave him tylenol and he went to sleep. dressing change completed on his ankle. patient is resting comfortably will continue to monitor.
[2020-05-07] MEDS: INSULIN LISPRO 100 UNIT/ML 3ML SQ SCH ×4 (05:40→20:52)
--- NOTE | 2020-05-07 06:23 | NUR ---
wound dressing change to right ankle done at this . time. barely any drainage and wound is healing very well Medihoney applied.
[2020-05-07] MEDS: METFORMIN HCL 500 MG TABLET PO SCH ×2 (07:58→17:23)
[2020-05-07] MEDS: ASPIRIN 81MG TAB.CHEW PO SCH (07:58)
[2020-05-07] MEDS: CLOPIDOGREL BISULFATE 75 MG TAB PO SCH (07:59)
[2020-05-07] MEDS: CITALOPRAM 20 MG TABLET PO SCH (07:59)
[2020-05-07] MEDS: CARVEDILOL 3.125 MG TABLET PO SCH ×2 (08:02→19:35)
[2020-05-07] MEDS: AMLODIPINE BESYLATE 2.5 MG TAB PO SCH (08:03)
[2020-05-07] MEDS: NYSTATIN 15 GM POWDER TP SCH ×2 (08:05→20:54)
[2020-05-07] MEDS: INSULIN GLARGINE 100 UNITS/ML 10 ML VIAL SQ SCH (08:05)
[2020-05-07] MEDS: HONEY 1 APPL/ML TUBE TP SCH ×2 (09:00→17:24)
--- NOTE | 2020-05-07 09:00 | NUR ---
cm note RESENT CLINICAL PACKET TO [facility] PHONE# [phone] FAX#[phone]. PER FACILITY REQUEST.
[2020-05-07 09:40] VITALS: BP 137/80; PULSE 67; RESP 20; TEMP 98
--- NOTE | 2020-05-07 10:00 | NUR ---
CM NOTE CALL MADE TO [facility]. AND CONFIRMED RECEIPT OF FAX. PENDING EVAL.
--- NOTE | 2020-05-07 11:03 | NUR ---
[facility] DENIED Sw spoke to Elroy Franklin at [facility]. They are unable to take pt at this time. They do not have enough PPE in facility. CM aware.
[2020-05-07 13:27] VITALS: BP 123/65; PULSE 67; RESP 18; TEMP 97.5
--- NOTE | 2020-05-07 18:39 | NUR ---
Pt alert, showed no signs and symptoms of distress, charge nurse Michelle did covid swab test on pt, pending covid19 results, will continue to monitor
[2020-05-07 19:17] VITALS: BP 120/71; PULSE 67; RESP 20; TEMP 97.8
[2020-05-07] MEDS: ATORVASTATIN CALCIUM 20 MG TABLET PO SCH (19:35)
[2020-05-07 19:39] VITALS: BP 156/84; PULSE 71; RESP 18; TEMP 97.6
[2020-05-08] VITALS (8 sets, daily range): BP systolic 101–158; BP diastolic 66–158; PULSE 62–97; RESP 18–20; TEMP 97.5–98.4
--- NOTE | 2020-05-08 04:32 | NUR ---
assessment Patient is alert and oriented times 3. No complaints of any pain. patient is being turned q 2 hours. vitals are stable will continue to monitor.
[2020-05-08] MEDS: INSULIN LISPRO 100 UNIT/ML 3ML SQ SCH ×4 (05:48→20:10)
--- NOTE | 2020-05-08 06:28 | NUR ---
dressing dressing change done to the rightankle with mio. wound almost healed
[2020-05-08] MEDS: CLOPIDOGREL BISULFATE 75 MG TAB PO SCH (07:42)
[2020-05-08] MEDS: METFORMIN HCL 500 MG TABLET PO SCH ×2 (07:42→18:11)
[2020-05-08] MEDS: ASPIRIN 81MG TAB.CHEW PO SCH (07:42)
[2020-05-08] MEDS: CARVEDILOL 3.125 MG TABLET PO SCH ×2 (07:43→19:30)
[2020-05-08] MEDS: AMLODIPINE BESYLATE 2.5 MG TAB PO SCH (07:43)
[2020-05-08] MEDS: CITALOPRAM 20 MG TABLET PO SCH (07:43)
[2020-05-08] MEDS: HONEY 1 APPL/ML TUBE TP SCH ×2 (07:44→18:11)
[2020-05-08] MEDS: NYSTATIN 15 GM POWDER TP SCH ×2 (07:46→20:10)
[2020-05-08] MEDS: INSULIN GLARGINE 100 UNITS/ML 10 ML VIAL SQ SCH (07:46)
--- NOTE | 2020-05-08 17:27 | NUR ---
Pt alert, showed no signs and symptoms of distress, vitals WNL, stated no pain
[2020-05-08] MEDS: ATORVASTATIN CALCIUM 20 MG TABLET PO SCH (19:29)
[2020-05-09] VITALS (7 sets, daily range): BP systolic 116–144; BP diastolic 67–82; PULSE 64–75; RESP 16–22; TEMP 97.9–98.8
[2020-05-09] MEDS: INSULIN LISPRO 100 UNIT/ML 3ML SQ SCH ×4 (05:25→20:30)
[2020-05-09] MEDS: NYSTATIN 15 GM POWDER TP SCH ×2 (09:00→19:38)
[2020-05-09] MEDS: HONEY 1 APPL/ML TUBE TP SCH ×2 (09:00→17:42)
[2020-05-09] MEDS: CITALOPRAM 20 MG TABLET PO SCH (09:53)
[2020-05-09] MEDS: ASPIRIN 81MG TAB.CHEW PO SCH (09:53)
[2020-05-09] MEDS: METFORMIN HCL 500 MG TABLET PO SCH ×2 (09:54→17:42)
[2020-05-09] MEDS: AMLODIPINE BESYLATE 2.5 MG TAB PO SCH (09:54)
[2020-05-09] MEDS: CLOPIDOGREL BISULFATE 75 MG TAB PO SCH (09:54)
[2020-05-09] MEDS: CARVEDILOL 3.125 MG TABLET PO SCH ×2 (09:57→19:38)
[2020-05-09] MEDS: INSULIN GLARGINE 100 UNITS/ML 10 ML VIAL SQ SCH (10:07)
[2020-05-09] MEDS: ATORVASTATIN CALCIUM 20 MG TABLET PO SCH (19:37)
[2020-05-10 04:04] VITALS: BP 159/87; PULSE 70; RESP 16; TEMP 98.4
[2020-05-10] MEDS: INSULIN LISPRO 100 UNIT/ML 3ML SQ SCH ×4 (05:59→21:18)
--- NOTE | 2020-05-10 06:00 | NUR ---
ASSESSMENT PT. ALERT AND ORIENTED TIMES 3. NO COMPLAINTS OF ANY PAIN. PATIENT IS ON ROOM AIR. DRESSING TO RIGHT ANKLE COMPLETE VITALS STABLE WILL CONTINUE TO MONITOR.
[2020-05-10 08:45] VITALS: BP 146/71; PULSE 72; RESP 17; TEMP 98.1
[2020-05-10] MEDS: HONEY 1 APPL/ML TUBE TP SCH ×2 (09:00→16:45)
[2020-05-10] MEDS: NYSTATIN 15 GM POWDER TP SCH ×2 (09:00→21:18)
[2020-05-10] MEDS: ASPIRIN 81MG TAB.CHEW PO SCH (09:56)
[2020-05-10] MEDS: CLOPIDOGREL BISULFATE 75 MG TAB PO SCH (09:56)
[2020-05-10] MEDS: AMLODIPINE BESYLATE 2.5 MG TAB PO SCH (09:58)
[2020-05-10] MEDS: METFORMIN HCL 500 MG TABLET PO SCH ×2 (09:58→17:22)
[2020-05-10] MEDS: CARVEDILOL 3.125 MG TABLET PO SCH ×2 (09:58→21:14)
[2020-05-10] MEDS: INSULIN GLARGINE 100 UNITS/ML 10 ML VIAL SQ SCH (09:59)
[2020-05-10] MEDS: CITALOPRAM 20 MG TABLET PO SCH (10:00)
[2020-05-10 11:00] VITALS: BP 116/66; PULSE 69; RESP 18; TEMP 98.4
--- NOTE | 2020-05-10 15:49 | NUR ---
CM NOTE/SNF REFERRAL FOLLOWED UP WITH EDDIE FROM [facility], MADE HIM AWARE OF NEGATIVE COVID TEST DONE ON 05/07. EMAILED RESULT AND RECEIVED. PER EDDIE, CLINICAL PACKET REFERRAL EMAILED TO HIM PRIOR AND UNDER REVIEW. FOLLOWED UP WITH ANEL AT [facility], DID NOT RECEIVE REFERRAL. CLINICAL PACKET REFERRAL EMAILED TO ANEL WELL LATEST COVID RESULT WHICH IS NEGATIVE. PER ANEL, MEDICALLY ACCEPTED BUT WILL REQUIRE A SECOND NEGATIVE COVID TEST, WILL CALL MD FOR ORDERS. PRIMARY NURSE, KENTRELL GUTIERREZ, MADE AWARE. MADHAV QUIGLEY UPDATED ON PROGRESS.
--- NOTE | 2020-05-10 15:51 | NUR ---
AAOx2-3. PLEASANT MOOD. ABLE TO MAKE NEEDS KNOWN. RESPIRATIONS EVEN AND UNLABORED ON RA. NO APPARENT DISTRESS NOTED. HX OF CVA WITH RIGHT SIDED WEAKNESS. REPOSITIONED Q2H AND NEEDED. WOUND CARE TO RIGHT ANKLE DONE THIS AM PRIOR TO SHIFT CHANGE PER NIGHT RN. DENIED PAIN. OOB TO CHAIR PER PT TODAY, TOLERATED FOR 2 HOURS. HOUR ROUNDLY FOR PATIENTS SAFETY. SAFETY MEASURES IN PLACE. AWAITING TRANSFER TO MED-SURG FLOOR.
[2020-05-10 16:00] VITALS: BP 113/67; PULSE 67; RESP 17; TEMP 98.9
--- NOTE | 2020-05-10 16:26 | NUR ---
CM NOTE/FAMILY AWARE OF SNFs RAUL TORRES, DAUGHTER, MADE AWARE OF [facility] VS [facility] IN [place]. PATIENT IS NOW COVID NEGATIVE AND TO BE TRANSFERRED OUT OF COVID UNIT TO MED/SURG PER [facility]. ANOTHER COVID TEST ORDERED FOR REQUIRED 2 NEGATIVE PRIOR TO [facility] TRANSFER. KENTRELL GUTIERREZ, PRIMARY NURSE, BUSY WITH OTHER PATIENT, SILVINO GUTIERREZ, MADE AWARE OF PENDING COVID TESTING. PER SILVINO, WILL LET KENTRELL GUTIERREZ KNOW. SEEING PATIENT IS NOW NEGATIVE, I CALLED SNF THAT DAUGHTER, DARRELL, WANTED ME TO TRY FIRST. THE FOLLOWING SNF TRIED BUT UNABLE TO ACCEPT D/T NOT ACCEPTING ADMITS/NO [facility] BEDS/DID NOT CALL ME BACK TO ACCEPT REFERRAL/PRIVATE PAY ONLY: [facility] [place] [facility] DAUGHTER, DARRELL, AWARE THAT I TRIED THESE SNF FOR [facility] BED BUT UNSUCCESSFUL. DARRELL ALSO AWARE THAT PATIENT WILL BE TRANSFERRED TO MED/SURG. PER ANEL AT [facility], PATIENT MEDICALLY ACCEPTED BUT REQUIRES SECOND NEGATIVE COVID TEST FOR ADMISSION. CM TO FOLLOW UP ACCORDINGLY.
--- NOTE | 2020-05-10 17:30 | NUR ---
TELEPHONE REPORT TO BRENDA PALOMINO. PT TRANSPORTED VIA WHEELCHAIR TO ROOM 312 IN STABLE CONDITION WITH ALL PERSONAL BELONGINGS.
[2020-05-10 20:00] VITALS: BP 123/72; PULSE 72; RESP 20; TEMP 97.7
[2020-05-10] MEDS: ATORVASTATIN CALCIUM 20 MG TABLET PO SCH (21:13)
[2020-05-11] VITALS (7 sets, daily range): BP systolic 122–152; BP diastolic 50–81; PULSE 64–74; RESP 16–20; TEMP 97.5–98.9
[2020-05-11] MEDS: INSULIN LISPRO 100 UNIT/ML 3ML SQ SCH ×4 (05:49→20:29)
[2020-05-11] MEDS: NYSTATIN 15 GM POWDER TP SCH ×2 (09:00→21:44)
[2020-05-11] MEDS: METFORMIN HCL 500 MG TABLET PO SCH ×2 (10:23→17:23)
[2020-05-11] MEDS: CITALOPRAM 20 MG TABLET PO SCH (10:23)
[2020-05-11] MEDS: ASPIRIN 81MG TAB.CHEW PO SCH (10:23)
[2020-05-11] MEDS: AMLODIPINE BESYLATE 2.5 MG TAB PO SCH (10:24)
[2020-05-11] MEDS: CLOPIDOGREL BISULFATE 75 MG TAB PO SCH (10:24)
[2020-05-11] MEDS: CARVEDILOL 3.125 MG TABLET PO SCH ×2 (10:24→20:07)
[2020-05-11] MEDS: INSULIN GLARGINE 100 UNITS/ML 10 ML VIAL SQ SCH (10:31)
--- NOTE | 2020-05-11 12:40 | NUR ---
JULIET Note: [facility] CM spoke to Elroy w/[facility] pt has approval, just pending 2nd covid result collected yesterday, PASRR sent, informed Elroy will send covid result once result available. EMS arranged and faxed today, primary nurse to call [facility] once pt ready to DC. Spoke to Leticia CHUNG Director, informed of the above. Made aware spoke to daughter Delores and daughter stated she is not able to provide transportation for patient. As per Leticia will ask [employer] for EMS approval. Spoke to Agatha liriano/[facility], informed of the above, stated will run by insurance first to see it transport need preauth, if insurance unable to cover transport estimate fee would be $2,450.00. Leticia CHUNG Director made aware of quote. Primary nurse aware of the above. CM to cont to follow up.
[2020-05-11] MEDS: HONEY 1 APPL/ML TUBE TP SCH ×2 (13:31→16:45)
--- NOTE | 2020-05-11 14:30 | NUR ---
JULIET Note: EMS admin approval CM spoke to Leticia CHUNG Director. As per Leticia Nye LUBRICATING MACHINE TENDER and Tyrel ALAMOO formally approved EMS transport for pt to [facility]. Agatha liriano/L[facility] updated in case insurance deny transport. Primary nurse updated. CM to cont to follow up.
--- NOTE | 2020-05-11 15:36 | NUR ---
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 Faxed clinicals, PT, and covid results to [facility], confirmation received. Spoke to Jeremy and Jeane will coordinate with each other, made aware pending 2nd covid test result, will send once result available. Pt pending approval. Primary nurse aware. CM to cont to follow up.
--- NOTE | 2020-05-11 15:47 | NUR ---
Family notification Addendum for 05/10/2020; attempted to call Delores Keith to give her an update regarding patient's condition. Call went to voicemail
[2020-05-11] MEDS: ATORVASTATIN CALCIUM 20 MG TABLET PO SCH (20:07)
[2020-05-12] VITALS (7 sets, daily range): BP systolic 109–159; BP diastolic 52–81; PULSE 60–73; RESP 16–20; TEMP 97.6–98.4
[2020-05-12] MEDS: INSULIN LISPRO 100 UNIT/ML 3ML SQ SCH ×4 (06:34→20:11)
[2020-05-12] MEDS: METFORMIN HCL 500 MG TABLET PO SCH ×2 (09:00→16:29)
[2020-05-12] MEDS: CLOPIDOGREL BISULFATE 75 MG TAB PO SCH (10:17)
[2020-05-12] MEDS: AMLODIPINE BESYLATE 2.5 MG TAB PO SCH (10:17)
[2020-05-12] MEDS: CITALOPRAM 20 MG TABLET PO SCH (10:17)
[2020-05-12] MEDS: ASPIRIN 81MG TAB.CHEW PO SCH (10:17)
[2020-05-12] MEDS: CARVEDILOL 3.125 MG TABLET PO SCH ×2 (10:18→20:08)
[2020-05-12] MEDS: INSULIN GLARGINE 100 UNITS/ML 10 ML VIAL SQ SCH (10:22)
[2020-05-12] MEDS: NYSTATIN 15 GM POWDER TP SCH ×2 (10:25→20:15)
[2020-05-12] MEDS: HONEY 1 APPL/ML TUBE TP SCH ×2 (10:25→16:39)
--- NOTE | 2020-05-12 11:38 | NUR ---
CM Note: [place] approval CM spoke to Jeremy deandra/[facility], pt has approval good to transfer today. EMS arranged and faxed, primary nurse to call [facility] once pt ready to DC. Primary nurse aware. CM to cont to follow up.
--- NOTE | 2020-05-12 11:39 | NUR ---
CM Note: [facility] cancelled, per dtr req CM spoke to dtr, made aware of approval for [place], [facility] is thankful, informed will cancel referral to [facility] at this time. Aware pt will dc today via EMS, dtr agreeable. CM called [facility] left voicemail to Elroy, informed of referral cancellation per dtr request. Awaiting call back. CM to cont to follow up.
--- NOTE | 2020-05-12 14:27 | NUR ---
SPOKE TO THE [employer] TECHNICIAN PER [facility] CANT BE TRF UNTIL RESULTS OF COVID 19 TEST THAT WAS DONE ON 05-11-20. THEY WILL ACCEPT HIM WITH NO PROBLEM BUT RESULT NEEDED BEFORE TSF TO [facility] [phone]
--- NOTE | 2020-05-12 18:23 | NUR ---
CALLED AMBULANCE FOR ETA, NO ETA AT THIS TIME STILL WAITING. COVID19 TEST 7-14-- NEG
[2020-05-12] MEDS: ATORVASTATIN CALCIUM 20 MG TABLET PO SCH (20:07)
--- NOTE | 2020-05-12 20:10 | NUR ---
MEDS SHIFT ASSESSMENT DONE, PLEASE REFER TO CHART. DUE MEDS ADMINISTERED, TOLERATED WELL. PROVIDED PT WITH SANDWICH AND JUICE TO SNACK ON. PT AWAITING FOR TRANSPORT TO [facility]. Addendum: 05/13/20 at 0309 by SERGIO MERRILL RN RN Amended: Links added.
--- NOTE | 2020-05-12 22:30 | NUR ---
D/C EMS TRANSPORT IN TO TAKE PT TO [facility]. D/C PT IN STABLE CONDITION.
== END 2020-05-12 22:30 | DRG 853 ==
LOC: EDH 16:50 → EDHIP 21:30 → 3AH 04-19 01:30 → 4BH 04-28 15:44 → 3BH 05-10 17:58
PROVIDERS: ADMIT Internal Medicine Critical Care Medicine; ATTEND Internal Medicine Critical Care Medicine
PROC: 047K3DZ Dilation of Right Femoral Artery with Intraluminal Device, Percutaneous Approach (ICD-10-PCS; principal; 2020-04-26)
PROC: 04CK3ZZ Extirpation of Matter from Right Femoral Artery, Percutaneous Approach (ICD-10-PCS; 2020-04-26)
PROC: B4101ZZ Fluoroscopy of Abdominal Aorta using Low Osmolar Contrast (ICD-10-PCS; 2020-04-26)
DX: A41.9 Sepsis, unspecified organism (principal); U07.1 COVID-19; I69.351 Hemiplegia and hemiparesis following cerebral infarction affecting right dominant side; L97.319 Non-pressure chronic ulcer of right ankle with unspecified severity; E11.621 Type 2 diabetes mellitus with foot ulcer; D64.9 Anemia, unspecified; E11.51 Type 2 diabetes mellitus with diabetic peripheral angiopathy without gangrene; E78.5 Hyperlipidemia, unspecified; F03.90 Unspecified dementia, unspecified severity, without behavioral disturbance, psychotic disturbance, mood disturbance, and anxiety; I10 Essential (primary) hypertension; I25.10 Atherosclerotic heart disease of native coronary artery without angina pectoris; Z79.84 Long term (current) use of oral hypoglycemic drugs; Z79.02 Long term (current) use of antithrombotics/antiplatelets; Z79.899 Other long term (current) drug therapy; Z83.3 Family history of diabetes mellitus; Z82.49 Family history of ischemic heart disease and other diseases of the circulatory system